=== PATIENT | male | born 1935 | race Caucasian/White ===

== ENCOUNTER 2017-11-15 09:37 | Outpatient (CLI) | payer MEDICARE, SELFPAY ==
[2017-11-15 11:15] LABS: Cholesterol 167 mg/dL (50-200); HDL Cholesterol 61 mg/dL (40-60); LDL CHOLESTEROL 89 mg/dL (<100); Triglyceride 145 mg/dL (30-150)
[2017-11-17 07:29] LABS: Testosterone, Total 178 ng/dL (240-950)
== END 2017-11-15 09:57 ==
PROVIDERS: PCP Internal Medicine; Visit Provider Urology
DX: E78.00 Pure hypercholesterolemia, unspecified (principal); E29.1 Testicular hypofunction; C61 Malignant neoplasm of prostate
CPT/HCPCS: 36415; 80061; 83721; 84403

== ENCOUNTER 2018-01-03 09:59 | Outpatient (CLI) | payer MEDICARE, SELFPAY ==
[2018-01-03 12:31] LABS: Abs Immature Grans 0.02 k/cumm (0.0-0.09); Absolute Basophil Count 0.01 k/cumm (0.0-0.2); Absolute Lymphocyte Count 1.41 k/cumm (1.2-3.4); Absolute Monocyte Count 0.85 k/cumm (0.11-0.7); Absolute Neutrophil Count 5.11 k/cumm (1.2-6.7); Basophils % 0.1; Eosinophils % 2.6; HCT 40.3 % (40.0-50.0); HGB 13.3 g/dL (13.5-17.5); Immature Grans % 0.3; Lymphocytes % 18.6; Mean Corpuscular Hemoglobin 33.8 pg (27.0-33.0); Mean Corpuscular Volume 102.3 fL (80-95); Mean Platelet Volume 9.6 fL (8.0-11.0); Monocytes % 11.2; Neutrophils % 67.2; Platelet Count 219 x1000/uL (130-400); RBC 3.94 m/cumm (4.50-6.00); RBC Distribution Width 12.9 % (11.8-14.1)
[2018-01-03 13:43] LABS: ALT 26 U/L (12-78); AST 23 U/L (15-37); Alkaline Phosphatase 93 U/L (46-116); Anion Gap 7.3 mmol/L (3-11); BUN 16 mg/dL (7-18); Bilirubin, Total 0.6 mg/dL (0.2-1.0); CO2 30.7 mmol/L (21.0-32.0); CREATININE 0.83 mg/dL (0.70-1.30); Calcium 8.7 mg/dL (8.5-10.1); Chloride 103 mmol/L (98-107); Glucose 95 mg/dL (70-100); Potassium 4.3 mmol/L (3.5-5.1); Sodium 141 mmol/L (136-145); TSH (W/Ref FT4) 1.58 uIU/mL (0.358-3.74); Total Protein 6.5 g/dL (6.4-8.2)
== END 2018-01-03 10:19 ==
PROVIDERS: PCP Internal Medicine; Visit Provider Internal Medicine
DX: F32.9 Major depressive disorder, single episode, unspecified (principal); D75.89 Other specified diseases of blood and blood-forming organs; E78.00 Pure hypercholesterolemia, unspecified
CPT/HCPCS: 36415; 80053; 84443; 85025

== ENCOUNTER 2018-03-16 11:38 | Outpatient (CLI) | payer MEDICARE, SELFPAY ==
--- NOTE | 2018-03-16 11:32 | DI.RAD_ITS ---
SYMPTOMS/DIAGNOSIS: RIGHT WRIST PAIN RIGHT WRIST: There are severe degenerative changes involving the 1st and 2nd multangular and multangular navicular joints. The joint space is essentially obliterated and there is sclerosis and periarticular hypertrophic spurring. The carpus is otherwise essentially unremarkable, the bony structures normally mineralized. There is prominence of the ulnar styloids, which would be consistent with an old wrist injury.
== END 2018-03-16 11:58 ==
PROVIDERS: PCP Internal Medicine; Referring Provider Internal Medicine; Visit Provider Student in an Organized Health Care Education/Training Program
DX: M25.531 Pain in right wrist (principal); M19.031 Primary osteoarthritis, right wrist
CPT/HCPCS: 99214; 73110

== ENCOUNTER → 2018-04-05 09:55 | Outpatient (BNVA) | payer MEDICARE, SELFPAY | PROVIDERS: PCP Internal Medicine; Visit Provider Nurse Practitioner Adult Health | DX: G56.01 Carpal tunnel syndrome, right upper limb (principal) | CPT/HCPCS: 95909; 99203; 99213 ==

== ENCOUNTER → 2018-04-13 12:41 | Outpatient (BNVA) | payer MEDICARE, SELFPAY | PROVIDERS: PCP Internal Medicine; Referring Provider Internal Medicine; Visit Provider Student in an Organized Health Care Education/Training Program | DX: M19.031 Primary osteoarthritis, right wrist (principal); G56.01 Carpal tunnel syndrome, right upper limb | CPT/HCPCS: 99213 ==

== ENCOUNTER 2018-05-05 01:18 | Outpatient (CLI) | payer MEDICARE, SELFPAY ==
--- NOTE | 2018-05-05 09:40 | DI.RAD_ITS ---
SYMPTOM/DIAGNOSIS: RT WRIST INJECTION, ARTHRITIS RIGHT WRIST. 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 Pemberton during the performance of a right wrist injection. Please refer to the procedure report for complete details.
--- NOTE | 2018-05-05 10:06 | W.PROCNOTE ---
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 Noninvasive measures have been tried. To serve as both diagnostic and therapeutic, an injection under fluoroscopy was recommended. I had discussed the risks of the procedure and the patient elected to proceed. Procedure Description: Farhad was greeted in the flouroscopy room. The correct side was identified and the consent was reviewed with the patient and signed. The patient was then seated at the fluoroscopy table with the right hand palm down on the table. The RIGHT wrist was then prepped with Chloraprep. The dorsal starting point was identiifed by bony landmarks and fluoroscopy. The skin and soft tissue in the tract of the injection was anesthetized with 1% Lidocaine. A needle was then inserted deep into STT joint. A small amount of Omnipaque solution was injected to confirm intraarticular placement. It was difficult to see the contrast material in the STT joint but it was seen on either side and within the intercarpal space. Once confirmed, the wrist was injected with 1cc of 0.5% Bupivicaine and 40mg of Depo-Medrol. A bandaid was placed on the injection site. The patient tolerated the procedure well.
[2018-05-05] MEDS: Omnipaque 300 MG/ML 10 ML BTL IJ (10:42)
[2018-05-05] MEDS: Bupivacaine 0.5% Pres-Free 10 ML VIAL IJ (10:43)
[2018-05-05] MEDS: methylPREDNISolone ACETATE 40 MG/ML VIAL IM (10:44)
== END 2018-05-05 01:38 ==
PROVIDERS: PCP Internal Medicine; Visit Provider Student in an Organized Health Care Education/Training Program
DX: M25.531 Pain in right wrist (principal); M19.031 Primary osteoarthritis, right wrist
CPT/HCPCS: 20605; 77002; J1030

== ENCOUNTER 2018-06-07 09:42 | Outpatient (CLI) | payer MEDICARE, SELFPAY ==
[2018-06-07 11:24] LABS: FREE T4 1.25 ng/dL (0.76-1.46); TSH 2.51 uIU/mL (0.358-3.74)
[2018-06-09 08:48] LABS: Vitamin D 25 Total 87.8 ng/ml (30-100)
[2018-06-10 11:42] LABS: Testosterone, Total 286 ng/dL (240-950)
== END 2018-06-07 10:02 ==
PROVIDERS: PCP Internal Medicine; Visit Provider Nurse Practitioner Family
DX: F43.21 Adjustment disorder with depressed mood (principal); E55.9 Vitamin D deficiency, unspecified; R63.4 Abnormal weight loss; Z79.899 Other long term (current) drug therapy
CPT/HCPCS: 36415; 82306; 84403; 84439; 84443

== ENCOUNTER 2018-07-29 01:57 | Outpatient (CLI) | payer MEDICARE, SELFPAY ==
--- NOTE | 2018-07-29 09:42 | DI.MRI_ITS ---
SYMPTOM/DIAGNOSIS: CONFUSION, MEMORY DISTURBANCE, INCREASING DEPRESSION BALANCE DISTURBANCE MRI BRAIN: Routine noncontrast examination was performed. There is prominence of the ventricles and sulci consistent with the patient's age and cerebral atrophy. Flair and T2 weighted images show hyperintense signal in the white matter most consistent with small vessel ischemic disease. The diffusion weighted images show no evidence of an acute infarct. Gradient imaging shows no evidence of acute intracranial hemorrhage. The ventricles are intact. Basilar cisterns are patent. There is no acute midline shift or mass effect. A normal flow void is seen in the [place] of [place]. There is complete opacification of the left maxillary sinus and mild mucosal thickening in the ethmoid air cells and right maxillary sinus. IMPRESSION: 1. Cerebral atrophy and small ischemic disease 2. No evidence of an acute infarct or hemorrhage. 3. Sinusitis predominantly involving the left maxillary sinus.
== END 2018-07-29 02:17 ==
PROVIDERS: PCP Internal Medicine; Visit Provider Nurse Practitioner Family
DX: R41.3 Other amnesia (principal); R26.89 Other abnormalities of gait and mobility; G31.1 Senile degeneration of brain, not elsewhere classified; I67.89 Other cerebrovascular disease; J32.9 Chronic sinusitis, unspecified
CPT/HCPCS: 70551

== ENCOUNTER 2018-08-12 16:37 | Emergency (ER) | payer MEDICARE, SELFPAY ==
[2018-08-12] VITALS (18 sets, daily range): BP systolic 100–136; BP diastolic 60–77; PULSE 59–67; RESP 11–28; TEMP 36.7; O2SAT 95–98
--- NOTE | 2018-08-12 17:03 | DI.CT_ITS ---
SYMPTOM/DIAGNOSIS: STROKE-LIKE SYMPTOMS 6 [address]RS AGO NONCONTRAST HEAD CT: Comparison is made with 16 Jan 2017 Atrophy and mild white matter changes of small vessel disease is noted. No acute infarct, hemorrhage or mass is seen. There is opacification of the left maxillary sinus, not seen on the previous exam. There is also opacification of the frontal and a few left ethmoid sinuses. IMPRESSION: Atrophy and mild small vessel disease of white matter. Chronic sinus disease.
[2018-08-12 17:20] LABS: Abs Immature Grans 0.02 k/cumm (0.0-0.09); Absolute Basophil Count 0.01 k/cumm (0.0-0.2); Absolute Eosinophil Count 0.16 k/cumm (0.0-0.7); Absolute Monocyte Count 0.75 k/cumm (0.11-0.7); Absolute Neutrophil Count 3.96 k/cumm (1.2-6.7); Basophils % 0.2; Eosinophils % 2.4; HCT 41.2 % (40.0-50.0); HGB 14.1 g/dL (13.5-17.5); Immature Grans % 0.3; Lymphocytes % 25.8; Mean Corp. HGB Concentration 34.2 g/dL (32.0-36.0); Mean Corpuscular Hemoglobin 33.5 pg (27.0-33.0); Mean Corpuscular Volume 97.9 fL (80-95); Mean Platelet Volume 8.9 fL (8.0-11.0); Monocytes % 11.4; Neutrophils % 59.9; Platelet Count 239 x1000/uL (130-400); RBC 4.21 m/cumm (4.50-6.00)
--- NOTE | 2018-08-12 17:41 | ED.GENADUL_ITS ---
Discharge Plan Disposition Patient Disposition: HOME Condition: Good Discharge Details Chief Complaint: CVA/TIA Clinical Impression: Brain TIA Primary Care Provider: Toyin Stevenson ED Provider: Enzo Dos Santos Home Meds and New Rx's Prescriptions: New aspirin 81 mg tablet,delayed release (DR/EC) 81 mg PO DAILY Qty: 60 RF: 0 Continued amoxicillin-pot clavulanate [Augmentin] 500-125 mg tablet 1 tab PO BID Qty: 20 RF: 2 lorazepam [Ativan] 1 mg tablet 1 mg PO BID Qty: 60 RF: 0 latanoprost 2.5 ML drops 1 drp OU QPM RF: 0 dorzolamide 10 ML drops 1 drp OS BID RF: 0 triamcinolone acetonide 15 GM cream 15 gm Topical BID Qty: 1 RF: 0 clonazepam [Klonopin] 1 MG tablet 0.5 mg PO HS PRNQty: 30 RF: 5 vitamin B complex [B Complex 1] tablet 1 tab PO DAILY RF: 0 cholecalciferol (vitamin D3) 5,000 unit capsule 5,000 unit PO DAILY RF: 0 Viibryd 20 mg tablet 30 mg PO DAILY RF: 0 Discharge Instructions Instructions: Transient Ischemic Attack (ED) Additional Instructions: At this time clinically I suspect you had a acute mini stroke. Please take your daily aspirin 81 mg as directed. Please follow-up on Wednesday or Wednesday with your primary care provider. If you notice any worsening of your symptoms, or any new symptoms such as vomiting, diarrhea, fever, chills, shortness of breath, chest pain, numbness, weakness, or fainting , please return immediately to the emergency department for reevaluation. Please follow up with your primary care provider as soon as possible for reassessment and reevaluation. As always, it was a pleasure participating in your medical care today. Referrals: Toyin Stevenson MD [Primary Care Provider] - Medical Decision Making This is an 83-year-old male with a past medical history of sinusitis, anxiety, previous prostate cancer with prostatectomy who presents today for evaluation of difficulty forming words roughly 5 to 6 hours ago lasting only 15 minutes. The episode resolved on its own. He has had no concerning red flags of chest pain shortness of breath syncope lightheadedness headache numbness tingling or weakness since then. Physical exam demonstrates no neurologic deficits, no focal abnormality. He has normal ambulation, normal speech, with no concerning physical exam findings. I suspect that the patient most likely had a small TIA based on his age and limited risk factors. We will get a CT scan of his head, evaluate for any acute cardiac component, and reassess. The patient's ABCD 2 risk score is 3 points which places him in the low risk categ ory. 6:27 PM Patient's laboratory work-up has returned, no significant abnormalities. Electrolytes are normal, hemoglobin level stable. Renal function normal. Troponin less than 0.05. EKG benign. CT scan per virtual radiology demonstrates no acute intracranial hemorrhage. There is an opacity in left maxillary sinus and frontal sinus but no other significant abnormality. He shows no evidence of headache, neck pain, or significant frontal facial pain. I see no evidence of acute severe sinusitis. He has completed his course of Augmentin just yesterday. Neurology reassessment demonstrates continued normal neurologic exam with no acute abnormality or deficit. With a benign work-up, negative head CT scan, signs and symptoms occurring over 5 hours ago and lasting less than 15 minutes, and with a complete return to normal mental status afterwards I see no acute indication for significant stroke. Signs and symptoms appear consistent with a TIA. I had a long discussion with the patient and family regarding admission versus discharge and close follow-up. Currently it is Wednesday and will be unable to offer MRI or echo currently. I discussed the risks and benefits of these options, and through shared decision making process family is requesting to go home, however her plan will entail prompt follow-up on Wednesday or Wednesday with the patient's PCP, daily aspirin 81 mg daily, and prompt return for any return of symptoms. I have extensively reviewed the treatment plan and discharge instructions with the patient and their family. I have addressed all patient concerns at this time. The patient and family was made aware of what symptoms to monitor for that would warrant a return to the emergency department. Discussed the plan with the patient and family, they demonstrate verbal understanding and agreement with our assessment and plan at this time. EKG 17: 08 Rate 62, sinus rhythm, intervals normal except for a slightly shortened IN. No evidence of delta wave. No significant ST elevations or depressions, no Q waves. COMPARISON: CT HEAD WITHOUT CONTRAST 01/16/2017 10:08 AM FINDINGS: Brain: No acute intracranial hemorrhage. There is mild diffuse heterogeneity of the white matter attenuation, consistent with chronic white matter ischemic changes. Mild cerebral atrophy Ventricles: Normal. No ventriculomegaly. Bones/joints: Unremarkable. No acute fracture. Sinuses: Opacity in the left maxillary sinus and frontal sinuses and ethmoid sinuses may represent acute or chronic sinusitis. Mastoid air cells: Visualized mastoid air cells are well aerated. No mastoid effusion. Soft tissues: Unremarkable. IMPRESSION: 1. No acute intracranial hemorrhage. 2. Opacity in the left maxillary sinus and frontal sinuses and ethmoid sinuses may represent acute or chronic sinusitis. ASSESSMENT: ASPECTS ([place] Stroke Program Early CT Score) is 10 Thank you for allowing us to participate in the care of your patient. Dictated and Authenticated by: Malinda Santana MD 08/12/2018 5:40 PM Eastern Time ([place] & [place]) HPI General Date/Time Provider Initiated Documentation: 08/12/18 16:43 . HPI Narrative: This is an 83-year-old male with a past medical history of sinusitis, anxiety, lumbar discectomy, radical prostatectomy, carpal tunnel, previous prostate cancer, who presents today for evaluation of difficulty forming his words. Patient states that at 11 AM which was 6 hours ago he had 15 minutes where he had mild confusion and difficulty forming his words. He had no vision changes, weakness, numbness or tingling, fall, loss of balance, headache, chest pain, or shortness of breath during this time. Symptoms resolved on their own without any intervention. Since then he has had no other symptoms like this. He denies any history of stroke or CO in the past. He denies any vomiting diarrhea fever chills, headache, neck pain, shortness of breath, or other complaints. In the past he used to take a daily aspirin but he has not taken any for the last few years. He denies any other modifying factors. He denies any medication changes. Of note he was recently diagnosed with sinusitis and took a full and complete course of 10 days of Augmentin. He finished this yesterday. Related Data Home Medications Medication Instructions Recorded Confirmed dorzolamide 1 drp OS BID drp NS 05/09/12 08/12/18 latanoprost 1 drp OU QPM drp NS 05/09/12 08/12/18 triamcinolone acetonide 15 gm TOPICAL BID #1 script 04/14/17 08/12/18 clonazepam [Klonopin] 0.5 mg PO HS PRN #30 tab-cap 10/18/17 08/12/18 cholecalciferol (vitamin D3) 5,000 5,000 unit PO DAILY 07/28/18 08/12/18 unit capsule vitamin B complex tablet 1 tab PO DAILY 07/28/18 08/12/18 amoxicillin 500 mg-potassium 1 tab PO BID #20 tab 08/01/18 08/12/18 clavulanate 125 mg tablet lorazepam 1 mg tablet 1 mg PO BID #60 tab 08/01/18 08/12/18 vilazodone 20 mg tablet 30 mg PO DAILY tab 08/01/18 08/12/18 aspirin 81 mg PO DAILY #60 tab 08/12/18 Previous Rx's Medication Instructions Recorded triamcinolone acetonide 15 gm TOPICAL BID #1 script 04/14/17 amoxicillin 500 mg-potassium 1 tab PO BID #20 tab 08/01/18 clavulanate 125 mg tablet lorazepam 1 mg tablet 1 mg PO BID #60 tab 08/01/18 aspirin 81 mg PO DAILY #60 tab 08/12/18 Allergies Allergy/AdvReac Type Severity Reaction Status Date / Time brimonidine tartrate Allergy Intermediate eye Verified 08/12/18 16:47 [From Combigan] irritation,rash buspirone Allergy Intermediate Verified 08/12/18 16:47 shellfish derived Allergy Intermediate Swelling/Ed Verified 08/12/18 16:47 earnest timolol maleate Allergy Intermediate eye Verified 08/12/18 16:47 [From Combigan] irritation,rash hydrocodone Allergy Verified 08/12/18 16:47 codeine AdvReac Intermediate Nausea Verified 08/12/18 16:47 ibuprofen [From Advil] AdvReac Intermediate Nausea Verified 08/12/18 16:47 naproxen sodium [From Aleve] AdvReac Intermediate Nausea Verified 08/12/18 16:47 indomethacin [From Indocin] AdvReac Mild Diarrhea Verified 08/12/18 16:47 General Stated Complaint: CVA/TIA DARRICK: 2 Review of Systems Review of Systems All systems reviewed & are unremarkable except as noted in HPI and below PFSH Medical History Arthritis of right wrist (Acute) Primary malignant neoplasm of prostate (Acute) Hypercholesterolemia (Acute) Glaucoma (Acute) Depression (Acute 08/28/15) Surgical History H/O prostatectomy (Chronic) CERVICAL SPINE FUSING Colonoscopy - IV Sedation (05/16/12) Extraction of cataract (06/12/14) Social History Smoking/Tobacco Use Status: Never Alcohol Intake: never Drug use: Never Substance use type: does not use Housing: house Do you feel safe at home: Yes Do you feel safe in your relationship?: Yes Exam Narrative Exam Narrative: 1.Const: Well-nourished, Well-developed, appearing stated age 2.Eyes: PERRL, no conjunctival injection, and symmetrical lids. 3.ENT: Atraumatic external nose and ears. Moist MM. Neck: Symmetric, trachea midline, No thyromegaly. 4.CVS: +S1/S2, No murmurs or gallops. Peripheral pulses 2+ and equal in all extremities. Brisk capillary refill in all extremities. No carotid or vertebral bruits. 5.RESP: Unlabored respiratory effort. Clear to auscultation bilaterally. No wheezes rales or rhonchi 6.GI: Soft, Nontender/Nondistended, No hepatosplenomegaly. No guarding or rebound. 7.MSK: Normocephalic/Atraumatic, Extremities w/o deformity or ttp No cyanosis or clubbing, Normal movement of all extremities 8.Skin: Warm, Dry. No rashes or lesions. 9.Neuro: sight mounter II-XII grossly intact. Sensation grossly intact, no focal neurologic deficits. All 6 cardinal planes of vision are fully intact. No evidence of rotatory or vertical nystagmus. The patient demonstrated a normal [id number], good dexterity. There was no evidence of dysdiadochokinesia. Patient was able to ambulate without difficulty. There was no wide-based gait. Romberg, and [id number] are both normal on testing. Sensation was intact bilaterally as well as muscle strength bilaterally for all extremities. Patient was able to verbalize butter cup with no slurring, or miss pronunciation. 10.Psych: (AAO) x3. Appropriate mood and affect Course Vital Signs Temperature 36.7 C 08/12/18 16:43 Pulse 67 08/12/18 16:43 Respiratory Rate 18 08/12/18 16:43 Blood Pressure 136/77 08/12/18 16:43 Pulse Oximetry 96 08/12/18 16:43 Temperature 36.7 C 08/12/18 16:43 Temperature Source Temporal Artery Scan 08/12/18 16:43 Pulse 67 08/12/18 16:43 Respiratory Rate 18 08/12/18 16:43 Respiratory Effort Non-Labored 08/12/18 16:47 Blood Pressure 136/77 08/12/18 16:43 Blood Pressure Position Supine 08/12/18 16:43 Pulse Oximetry 96 08/12/18 16:43 Oxygen Delivery Method Room Air 08/12/18 16:43 Oxygen Flow Rate 0 08/12/18 16:43 Pain Level 0 08/12/18 16:43
--- NOTE | 2018-08-12 17:41 | DI.VRAD_ITS ---
EXAM: CT Head Without Contrast EXAM DATE/TIME: 08/12/2018 5:04 PM CLINICAL HISTORY: 83 years old, male; Other: Partial aphasia; Patient HX: Stroke-like symptoms 6 hours ago TECHNIQUE: Imaging protocol: Axial computed tomography images of the head without contrast. Coronal and sagittal reformatted images were created and reviewed. Other technique: STROKE PROTOCOL was implemented. COMPARISON: CT HEAD WITHOUT CONTRAST 01/16/2017 10:08 AM FINDINGS: Brain: No acute intracranial hemorrhage. There is mild diffuse heterogeneity of the white matter attenuation, consistent with chronic white matter ischemic changes. Mild cerebral atrophy Ventricles: Normal. No ventriculomegaly. Bones/joints: Unremarkable. No acute fracture. Sinuses: Opacity in the left maxillary sinus and frontal sinuses and ethmoid sinuses may represent acute or chronic sinusitis. Mastoid air cells: Visualized mastoid air cells are well aerated. No mastoid effusion. Soft tissues: Unremarkable. IMPRESSION: 1. No acute intracranial hemorrhage. 2. Opacity in the left maxillary sinus and frontal sinuses and ethmoid sinuses may represent acute or chronic sinusitis. ASSESSMENT: ASPECTS ([place] Stroke Program Early CT Score) is 10 Dictated and Authenticated by: Malinda Santana MD. Ordering:ANNIE Giraldo MD
[2018-08-12 17:44] LABS: ALT 28 U/L (12-78); AST 24 U/L (15-37); Albumin 3.1 g/dL (3.4-5.0); Alkaline Phosphatase 87 U/L (46-116); Anion Gap 10.7 mmol/L (3-11); BUN 19 mg/dL (7-18); Bilirubin, Total 0.3 mg/dL (0.2-1.0); CO2 26.3 mmol/L (21.0-32.0); CREATININE 0.87 mg/dL (0.70-1.30); Calcium 9.1 mg/dL (8.5-10.1); Chloride 106 mmol/L (98-107); Glucose 100 mg/dL (70-100); Magnesium 2.1 mg/dL (1.8-2.4); Potassium 4.1 mmol/L (3.5-5.1); Sodium 143 mmol/L (136-145)
[2018-08-12 17:45] LABS: Troponin I < 0.05 ng/mL (0.00-0.06)
[2018-08-12] MEDS: Aspirin 81 MG CHEW PO (18:29)
--- NOTE | 2018-08-15 08:00 | NUR.NOTE ---
referral sent to patient pcp.Nursing Note:
== END 2018-08-12 18:36 | disposition home or self-care (01) ==
PROVIDERS: Emergency Provider Student in an Organized Health Care Education/Training Program; PCP Internal Medicine
DX: G45.9 Transient cerebral ischemic attack, unspecified (principal)
CPT/HCPCS: 36415; 80053; 93005; 99285; 70450; 83735; 84484; 85025; 93010

== ENCOUNTER 2018-08-22 00:24 | Outpatient (CLI) | payer MEDICARE, SELFPAY ==
--- NOTE | 2018-08-22 09:36 | DI.US_ITS ---
SYMPTOM/DIAGNOSIS: TIA, G45.9, APHASIA, DIZZINESS CAROTID ULTRASOUND: There is a mild amount of plaque in the common carotid bulbs. No significant stenosis is visible. The velocity measurements are within the normal range. The vertebral arteries show antegrade flow. IMPRESSION: No significant internal carotid artery stenosis.
== END 2018-08-22 00:44 ==
PROVIDERS: PCP Internal Medicine; Visit Provider Internal Medicine
DX: G45.9 Transient cerebral ischemic attack, unspecified (principal); R47.01 Aphasia; R42 Dizziness and giddiness
CPT/HCPCS: 93880

== ENCOUNTER 2018-08-31 00:37 | Outpatient (CLI) | payer MEDICARE, SELFPAY ==
--- NOTE | 2018-08-31 07:31 | MERGE_ITS ---
*[facility]* *[facility]* [address] [place] [address] Date of study: 08/31/2018 Transthoracic Echocardiography M-mode, complete 2D, complete spectral Doppler, and color Doppler *STUDY CONCLUSIONS* Summary: 1. Left ventricle: The cavity size was normal. Wall thickness was normal. Systolic function was normal. The estimated ejection fraction was 60-65%. Wall motion was normal; there were no regional wall motion abnormalities. Findings consistent with diastolic dysfunction. 2. Aortic valve: Sclerosis without stenosis. There was mild regurgitation. 3. Mitral valve: Mildly thickened leaflets. There was mild regurgitation. 4. Left atrium: The atrium was moderately dilated. 5. Right ventricle: The cavity size was moderately dilated. Wall thickness was normal. Systolic function was normal. Minor axis dimension, ED (basilar, A4C): 4.8cm. 6. Right atrium: The atrium was moderately to severely dilated. 7. Tricuspid valve: Mildly thickened leaflets. There was moderate-severe regurgitation. 8. Pulmonary arteries: Pulmonary systolic pressure was increased, in the range of 35mm Hg to 40mm Hg. *PATIENT PRESENTATION* Height: 177.8cm (70in ) S/D Pressure: 113 / 69 Weight: 64.4kg (141.7lb ) BSA: 1.78m^2 Test start time: 07:42 AM. Test stop time: 08:45 AM. PERFORMING Unknown PERFORMING [facility] ORDERING Toyin Stevenson REFERRING Toyin Stevenson [employer] Joyce Carrero, RT (R)(CT), [facility] *PROCEDURE DATA* Procedure information: The patient was identified by two identifiers. This study was interpreted by [facility]. Pertinent images and digital data are archived for permanent storage and are available for subsequent review. No prior study was available for comparison. Study status: Routine. Transthoracic echocardiography. M-mode, complete 2D, complete spectral Doppler, and color Doppler. A Transthoracic Echocardiogram was performed. Scanning was performed from the parasternal, apical, subcostal, and suprasternal notch acoustic windows. Images were obtained using an [id number] cardiac ultrasound machine. Image quality was adequate. Study completion: The patient tolerated the procedure well. There were no complications. History: PMH: TIA, Foot edema, NINO R06.09. *CARDIAC ANATOMY* Left ventricle: The cavity size was normal. Wall thickness was normal. Systolic function was normal. The estimated ejection fraction was 60-65%. Wall motion was normal; there were no regional wall motion abnormalities. Findings consistent with diastolic dysfunction. Aortic valve: Trileaflet. Sclerosis without stenosis. Mobility was not restricted. Doppler: Transvalvular velocity was within the normal range. There was no stenosis. There was mild regurgitation. VTI ratio of LVOT to aortic valve: 0.6. Valve area (VTI): 1.9cm^2. Indexed valve area (VTI): 1.1cm^2/m^2. Peak velocity ratio of LVOT to aortic valve: 0.61. Valve area (Vmax): 2cm^2. Indexed valve area (Vmax): 1.1cm^2/m^2. Mean velocity ratio of LVOT to aortic valve: 0.57. Valve area (Vmean): 1.8cm^2. Indexed valve area (Vmean): 1cm^2/m^2. Mean gradient (S): 5.3mm Hg. Peak gradient (S): 8.1mm Hg. Aorta: Aortic root: The aortic root was normal in size. Ascending aorta: The ascending aorta was normal in size. Mitral valve: Mildly thickened leaflets. Mobility was not restricted. Doppler: Transvalvular velocity was within the normal range. There was no evidence for stenosis. There was mild regurgitation. Valve area by pressure half-time: 3.3cm^2. Indexed valve area by pressure half-time: 1.9cm^2/m^2. Left atrium: The atrium was moderately dilated. Right ventricle: The cavity size was moderately dilated. Wall thickness was normal. Systolic function was normal. Pulmonic valve: Structurally normal valve. Doppler: Transvalvular velocity was within the normal range. There was no evidence for stenosis. There was trivial regurgitation. Peak gradient (S): 2.2mm Hg. Tricuspid valve: Mildly thickened leaflets. Doppler: Transvalvular velocity was within the normal range. There was no evidence for stenosis. There was moderate-severe regurgitation. Pulmonary artery: Pulmonary systolic pressure was increased, in the range of 35mm Hg to 40mm Hg. Right atrium: The atrium was moderately to severely dilated. Pericardium: There was no pericardial effusion. Systemic veins: Inferior vena cava: Well visualized. The vessel was patent and normal in size. The respirophasic diameter changes were in the normal range (greater than or equal to 50%). Baseline ECG: Normal sinus rhythm. Measurements Left ventricle Value Reference LV ID, ED, PLAX 4.3 cm 3.5 - 6.0 LV ID, ES, PLAX 2.7 cm 2.1 - 4.0 LV PW thickness, ED, PLAX 0.9 cm LV end-diastolic volume, 1-p A2C 69 ml LV ejection fraction, 1-p A2C 60 % LV end-diastolic volume, 1-p A4C 48 ml LV ejection fraction, 1-p A4C 59 % LV e', lateral 0.08 m/sec LV E/e', lateral 8 LV e', medial 0.076 m/sec LV E/e', medial 8 LV e', average 0.078 m/sec LV E/e', average 8 Ventricular septum Value Reference IVS thickness, ED, PLAX 1.1 cm LVOT Value Reference LVOT ID, A-P 2.0 cm LVOT area 3.2 cm^2 LVOT peak velocity, S 0.86 m/sec LVOT mean velocity, S 0.64 m/sec LVOT VTI, S 20.8 cm LVOT peak gradient, S 3 mm Hg LVOT mean gradient, S 1.8 mm Hg Stroke volume (SV), LVOT DP 67 ml Stroke index (SV/bsa), LVOT DP 38 ml/m^2 Aortic valve Value Reference Aortic valve peak velocity, S 1.4 m/sec Aortic valve mean velocity, S 1.1 m/sec Aortic valve VTI, S 35.0 cm Aortic mean gradient, S 5.3 mm Hg Aortic peak gradient, S 8.1 mm Hg VTI ratio, LVOT/AV 0.6 Aortic valve area, VTI 1.9 cm^2 Velocity ratio, peak, LVOT/AV 0.61 Aortic valve area, peak velocity 2 cm^2 Velocity ratio, mean, LVOT/AV 0.57 Aortic valve area, mean velocity 1.8 cm^2 Aortic valve area/bsa, mean velocity 1 cm^2/m^2 Aortic regurg deceleration 227 cm/s^2 Aortic regurg pressure half-time 499 ms Aorta Value Reference Aortic root ID, ED 3.4 cm Ascending aorta ID, A-P, S 3.5 cm RVOT Value Reference RVOT VTI, S 14.0 cm Left atrium Value Reference LA ID, A-P, ES 3.5 cm LA ID/bsa, A-P 2.0 cm/m^2 <=2.2 LA volume/bsa, ES, 1-p A4C 46 ml/m^2 LA volume, ES, 2-p 74 ml LA volume/bsa, ES, 2-p 42 ml/m^2 LA/aortic root ratio 1.04 Mitral valve Value Reference Mitral E-wave peak velocity 0.64 m/sec Mitral A-wave peak velocity 0.54 m/sec Mitral deceleration time 229 ms 150 - 230 Mitral pressure half-time 66 ms Mitral E/A ratio, peak 1.19 Mitral valve area, PHT, DP 3.3 cm^2 Pulmonary veins Value Reference Pulmonary vein peak velocity, S 0.72 m/sec Pulmonary vein peak velocity, D 0.47 m/sec Pulmonary vein velocity ratio, peak, 1.51 S/D Pulmonary vein A-wave reversal peak 0.27 m/sec velocity Tricuspid valve Value Reference Tricuspid regurg peak velocity 3.1 m/sec Tricuspid peak RV-RA gradient 38.5 mm Hg Right atrium Value Reference RA area, ES, A4C (H) 28.8 cm^2 8.3 - 19.5 Right ventricle Value Reference RV ID, minor axis, ED, A4C base 4.8 cm Pulmonic valve Value Reference Pulmonic peak gradient, S 2.2 mm Hg Legend: (L) and (H) alpesh values outside specified reference range. I have personally reviewed the images and have reviewed and edited the reported findings. Electronically signed by Michel Gtz 08/31/2018 09:59
== END 2018-08-31 00:57 ==
PROVIDERS: PCP Internal Medicine; Visit Provider Internal Medicine
DX: R06.09 Other forms of dyspnea (principal); I50.1 Left ventricular failure, unspecified; I08.3 Combined rheumatic disorders of mitral, aortic and tricuspid valves; G45.9 Transient cerebral ischemic attack, unspecified; R60.0 Localized edema
CPT/HCPCS: 93306

== ENCOUNTER → 2018-09-21 12:40 | Outpatient (BNVA) | payer MEDICARE, SELFPAY | PROVIDERS: PCP Internal Medicine; Referring Provider Nurse Practitioner Family; Visit Provider Psychiatry & Neurology Neurology | DX: G45.9 Transient cerebral ischemic attack, unspecified (principal); G62.9 Polyneuropathy, unspecified; R25.1 Tremor, unspecified; R26.9 Unspecified abnormalities of gait and mobility; F41.8 Other specified anxiety disorders | CPT/HCPCS: 99205; 99215 ==

== ENCOUNTER 2018-09-21 14:07 | Outpatient (CLI) | payer MEDICARE, SELFPAY ==
[2018-09-21 14:46] LABS: Hemoglobin A1C 6.2 % (4.5-6.2)
[2018-09-21 15:35] LABS: Vitamin B12 637 pg/mL (193-986)
[2018-09-21 15:42] LABS: Folate > 20.0 ng/mL (8.6-20.0)
[2018-09-22 14:03] LABS: Albumin 55.3 % (55.8-66.1); Comment SEE COMMENTS; Total Protein 6.8 g/dl (6.3-8.2)
== END 2018-09-21 14:27 ==
PROVIDERS: PCP Internal Medicine; Visit Provider Psychiatry & Neurology Neurology
DX: G62.9 Polyneuropathy, unspecified (principal); R79.89 Other specified abnormal findings of blood chemistry
CPT/HCPCS: 36415; 99215; 82607; 82746; 83036; 84165; 86320

== ENCOUNTER 2018-09-29 02:21 | Outpatient (CLI) | payer MEDICARE, SELFPAY ==
--- NOTE | 2018-11-01 12:49 | CER_ITS ---
DATE OF DICTATION: November 01, 2018 PREVENTICE MONITOR REPORT STUDY INDICATION: TIA REQUESTING PROVIDER: Yvonne Webb M.D. FINDINGS: The patient was monitored for 19 days and 6 hours. Average heart rate 61 bpm, range 54 to 114 bpm. Rare ectopy. No atrial fibrillation. One 4-beat ventricular run, 122 bpm. No pauses greater than 3 seconds. No high degree heart block. Three patient events. All of these events correlated with sinus rhythm with heart rates between 49 and 81 bpm. FINAL INTERPRETATION: One 4-beat ventricular run of unlcear significance.
== END 2018-09-29 02:41 ==
PROVIDERS: PCP Internal Medicine; Visit Provider Psychiatry & Neurology Neurology
DX: G45.9 Transient cerebral ischemic attack, unspecified (principal); I49.3 Ventricular premature depolarization
CPT/HCPCS: 93270

== ENCOUNTER 2018-10-27 15:42 | Outpatient (REF) | payer MEDICARE, SELFPAY | END 2018-10-27 16:02 | LOC: LBN 15:42 | PROVIDERS: PCP Internal Medicine; Visit Provider Otolaryngology | DX: J32.0 Chronic maxillary sinusitis (principal) | CPT/HCPCS: 87077; 87070; 87186 ==

== ENCOUNTER 2018-11-01 11:23 | Outpatient (CLI) | payer MEDICARE, SELFPAY | END 2018-11-01 11:43 | PROVIDERS: PCP Internal Medicine; Referring Provider Internal Medicine; Visit Provider Student in an Organized Health Care Education/Training Program | DX: I49.3 Ventricular premature depolarization (principal) | CPT/HCPCS: 93228 ==

== ENCOUNTER → 2018-11-14 10:38 | Outpatient (BNVA) | payer MEDICARE, SELFPAY | PROVIDERS: PCP Internal Medicine; Visit Provider Psychiatry & Neurology Neurology | DX: R25.1 Tremor, unspecified (principal); G45.9 Transient cerebral ischemic attack, unspecified; R26.9 Unspecified abnormalities of gait and mobility | CPT/HCPCS: 99213 ==

== ENCOUNTER 2019-01-17 00:53 | Outpatient (CLI) | payer MEDICARE, SELFPAY ==
--- NOTE | 2019-01-17 13:45 | DI.CT_ITS ---
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 There is an extensive opacification of multiple ethmoid sinuses. The sphenoid sinuses appear clear. The mastoid air cells are clear. T here is extension and involvement of the nasal cavity with thinning of the turbinates. There is also thinning of the lama of the maxillary sinuses as well as wall ethmoid and frontal sinuse s. The orbits are unremarkable. IMPRESSION: Marked interval increase in opacification of the sinuses, which could represent severe chronic sinusi tis versus extensive polyposis. Fungal infection is an additional consideration.
== END 2019-01-17 01:13 ==
PROVIDERS: PCP Internal Medicine; Visit Provider Otolaryngology
DX: J32.0 Chronic maxillary sinusitis (principal); J32.2 Chronic ethmoidal sinusitis
CPT/HCPCS: 70486

== ENCOUNTER 2019-03-17 11:17 | Outpatient (CLI) | payer MEDICARE, SELFPAY ==
[2019-03-17 12:43] LABS: ESR 35 mm/hr (1-20)
[2019-03-17 12:44] LABS: C-Reactive Protein 0.24 mg/dL (0.0-0.3)
[2019-03-20 12:13] LABS: c-ANCA Negative (Negative); p-ANCA Negative (Negative)
== END 2019-03-17 11:37 ==
PROVIDERS: PCP Internal Medicine; Visit Provider Otolaryngology
DX: J32.2 Chronic ethmoidal sinusitis (principal)
CPT/HCPCS: 36415; 85652; 86140; 86255

== ENCOUNTER 2019-03-17 11:52 | Outpatient (REF) | payer MEDICARE, SELFPAY | END 2019-03-17 12:12 | LOC: LBN 11:52 | PROVIDERS: PCP Internal Medicine; Visit Provider Otolaryngology | DX: J32.2 Chronic ethmoidal sinusitis (principal) | CPT/HCPCS: 87077; 87070; 87186 ==

== ENCOUNTER 2019-06-28 02:21 | Outpatient (CLI) | payer MEDICARE, SELFPAY ==
[2019-06-28 10:19] LABS: Abs Immature Grans 0.02 k/cumm (0.0-0.09); Absolute Basophil Count 0.01 k/cumm (0.0-0.2); Absolute Eosinophil Count 0.19 k/cumm (0.0-0.7); Absolute Monocyte Count 0.79 k/cumm (0.11-0.7); Absolute Neutrophil Count 4.58 k/cumm (1.2-6.7); Basophils % 0.1; Eosinophils % 2.7; HCT 41.5 % (40.0-50.0); Immature Grans % 0.3 %; Lymphocytes % 21.2; Mean Corp. HGB Concentration 33.7 g/dL (32.0-36.0); Mean Corpuscular Hemoglobin 33.2 pg (27.0-33.0); Mean Corpuscular Volume 98.3 fL (80-95); Mean Platelet Volume 9.1 fL (8.0-11.0); Monocytes % 11.1; Neutrophils % 64.6; Platelet Count 311 x1000/uL (130-400); RBC 4.22 m/cumm (4.50-6.00); RBC Distribution Width 13.1 % (11.8-14.1); White Blood Cell Count 7.09 k/cumm (4.4-10.8)
[2019-06-28 11:14] LABS: ALT 24 U/L (16-63); AST 22 U/L (15-37); Albumin 3.2 g/dL (3.4-5.0); Alkaline Phosphatase 103 U/L (46-116); Anion Gap 8.8 mmol/L (3-11); BUN 21 mg/dL (7-18); Bilirubin, Total 0.8 mg/dL (0.2-1.0); CO2 27.2 mmol/L (21.0-32.0); CREATININE 0.97 mg/dL (0.70-1.30); Calcium 8.9 mg/dL (8.5-10.1); Chloride 102 mmol/L (98-107); Glucose 94 mg/dL (74-106); Potassium 4.6 mmol/L (3.5-5.1); Sodium 138 mmol/L (136-145); TSH (W/Ref FT4) 1.67 uIU/mL (0.36-3.74)
== END 2019-06-28 02:41 ==
PROVIDERS: PCP Nurse Practitioner; Visit Provider Nurse Practitioner Family
DX: F43.21 Adjustment disorder with depressed mood (principal); Z79.899 Other long term (current) drug therapy
CPT/HCPCS: 36415; 80053; 84443; 85025

== ENCOUNTER 2020-06-04 17:56 | Outpatient (REF) | payer SELFPAY ==
[2020-06-04 21:50] LABS: Abs Immature Grans 0.03 10^3/uL (0.0-0.06); Absolute Basophil Count 0.02 10^3/uL (0.0-0.2); Absolute Eosinophil Count 0.09 10^3/uL (0.0-0.7); Absolute Lymphocyte Count 1.34 10^3/uL (1.2-3.4); Absolute Monocyte Count 0.88 10^3/uL (0.1-0.8); Absolute Neutrophil Count 2.94 10^3/uL (1.2-6.7); Basophils % 0.4; Eosinophils % 1.7; HCT 39.8 % (40.0-50.0); HGB 13.2 g/dL (13.5-17.5); Immature Grans % 0.6; Lymphocytes % 25.3; MCHC 33.2 % (32.0-36.0); MCV 102.6 fL (80-95); Monocytes % 16.6; Neutrophils % 55.4; Nucleated RBC 0 %; Platelet Count 340 10^3/uL (130-400); RBC 3.88 10^6/uL (4.36-5.78); RDW 13.5 % (11.8-14.1); RDW-SD 51.3 fL
[2020-06-04 22:31] LABS: ALT 17 U/L (16-63); AST 19 U/L (15-37); Albumin 2.7 g/dL (3.4-5.0); Alkaline Phosphatase 106 U/L (46-116); Anion Gap 5.4 mmol/L (3-11); BUN 17 mg/dL (7-18); Bilirubin, Total 0.5 mg/dL (0.2-1.0); CO2 30.6 mmol/L (21.0-32.0); CREATININE 0.8 mg/dL (0.70-1.30); Calcium 8.6 mg/dL (8.5-10.1); Chloride 105 mmol/L (98-107); Glucose 99 mg/dL (74-106); Magnesium 2.2 mg/dL (1.8-2.4); Potassium 4.9 mmol/L (3.5-5.1); Sodium 141 mmol/L (136-145); TSH (W/Ref FT4) 1.58 uIU/mL (0.36-3.74); Total Protein 6.6 g/dL (6.4-8.2); Vitamin B12 897 pg/mL (193-986)
== END 2020-06-04 17:57 | disposition home or self-care (01) ==
LOC: LBN 17:56
PROVIDERS: PCP Nurse Practitioner; Visit Provider Nurse Practitioner Adult Health
DX: R93.89 Abnormal findings on diagnostic imaging of other specified body structures (principal); R26.89 Other abnormalities of gait and mobility; R29.6 Repeated falls; R62.7 Adult failure to thrive
CPT/HCPCS: 80053; 82607; 83735; 84443; 85025

== ENCOUNTER 2020-06-08 10:51 | Inpatient (IN) | payer MEDICARE, SELFPAY ==
[2020-06-08] VITALS (43 sets, daily range): BP systolic 107–142; BP diastolic 51–105; PULSE 45–78; RESP 9–28; TEMP 36.1–36.6; O2SAT 89–98
--- NOTE | 2020-06-08 10:45 | RT.EKG_ITS ---
APPROVED REPORT Exam: Resting ECG Patient Location: E HR:54 bpm ECG Measurements Heart Rate 54 AXIS FL 149 P 84 QRSd 99 QRS -48 QT 450 T -23 QTc 428 Conclusion Sinus bradycardia...rate< 60 Left axis deviation...QRS axis (-30,-90) Nonspecific T abnormalities, diffuse leads...T <-0.10mV, ant/lat/inf. No STEMI. I have reviewed and interpreted ECG and agree with software generated interpretation.
--- NOTE | 2020-06-08 10:49 | W.ED.GENAD ---
Discharge Plan Disposition Patient Disposition: [facility] INPATIENT Condition: Stable Discharge Details Clinical Impression: Pulmonary embolism, Episode of syncope, Fall, Closed head injury Admit Date/Time: 06/08/20 14:39 Admit Provider: Jaden Cartwright Attending Provider: Jaden Cartwright Primary Care Provider: Jaclyn Cantu ED Provider: Leticia Georges Discharge Data Discharge Date/Time-TO BE ENTERED AT DEPARTURE: 06/08/20 15:36 Medical Decision Making 85-year-old male with a history of anxiety, depression, hypertension, hyperlipidemia, prostate cancer presents from health and rehab for dizziness, syncopal episode resulting in fall with head injury EKG on arrival notes a rate of 54, sinus with less than [address] depression T wave inversion in inferior and anterior leads. No STEMI Patient is quite soft-spoken and stutters at baseline. He is oriented x3. He denies any complaint of headache or chest pain. He is moving all extremities without evidence of pain with range of motion orthopedic deformity Considering patient's age, will check screening labs, urinalysis, CT head and cervical spine, chest x-ray and pelvis x-ray. Will give IV fluids and meclizine. Labs and imaging reviewed. White blood cell count 5. Hemoglobin 13. Troponin negative. Urinalysis notes 5-10 WBCs with few bacteria, negative leukocyte esterase and negative nitrite. Urine culture sent. CT head and cervical spine negative for acute findings. Chest x-ray notes questionable patchy densities in the lower lobes, CT chest may be obtained. As patient had a syncopal episode, will obtain a CT chest to r/o PE. CT chest noted: IMPRESSION: 1. Pulmonary emboli distal right main pulmonary artery and proximal segmental branches right middle lobe and right lower lobe. 2. RV/LV ratio 1.4 suggesting right heart strain. 3. 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 Recommend follow-up chest CT 3 months. 4. Images are degraded by motion. As pt has remained hemodynamically stable, neg troponin, normal BP, will admit here for tele monitoring. Case d/w hospitalist who accepts pt for admission. A dose of lovenox 1mg/kg. SC given. Medical Records Medical records reviewed: Yes I reviewed the patient's medical records. Imaging Data Radiologic Study: Radiologist's impression: XR CHEST 2V PA LATERAL CLINICAL HISTORY: s/p fall, dizziness, r/o acute disease TECHNIQUE: COMPARISON: No exams were available for comparison FINDINGS: AP and lateral views were obtained. Cardiac size is within normal limits. There are patchy vaguely nodular areas of increased radiodensity predominantly in the lower lung dumont, particularly on the left. Possibility of acute pneumonia is raised, please correlate regarding the possibility of aspiration. Follow-up radiographs requested, chest CT may be obtained for further evaluation if clinically indicated. CTA Chest With Contrast Exam date and time: 06/08/2020 12:21 PM Age: 85 years old Clinical indication: Other: Syncope episode, R/O pe, pneumonia TECHNIQUE: Imaging protocol: Computed tomographic angiography of the chest with contrast. 3D rendering (Not supervised by radiologist): MIP and/or 3D reconstructed images were created by the technologist. Radiation optimization: All CT scans at this facility use at least one of these dose optimization techniques: automated exposure control; mA and/or kV adjustment per patient size (includes targeted exams where dose is matched to clinical indication); or iterative reconstruction. Contrast material: VISIPAQUE 320; Contrast volume: 58 ml; Contrast route: INTRAVENOUS (IV); COMPARISON: CR XR CHEST 2V PA LATERAL 06/08/2020 11:47 AM FINDINGS: Pulmonary arteries: Filling defects in distal main right pulmonary artery and extending into the proximal segmental pulmonary arteries of right middle lobe right lobe. Aorta: Unremarkable. No aortic aneurysm. No aortic dissection. Lungs: Diffuse bilateral areas nodular infiltrate and pulmonary nodules, most marked in the left lower lobe where there are several larger nodules measuring to 7 mm. Most of the other nodules have a peribronchovascular distribution suggestive atypical mycobacterial infection. Areas of atelectasis including subpleural atelectasis in the lingula which has a masslike appearance. Diffuse bronchial wall thickening and mild bronchiectasis. Pleural spaces: Unremarkable. No pneumothorax. No pleural effusion. Heart: RV/LV ratio 1.4. Mild cardiac enlargement. No pericardial effusion. Lymph nodes: Prominent mediastinal and hilar lymph nodes. Bones/joints: The bones are demineralized. Mild degenerative arthritis in the spine. Soft tissues: Unremarkable. Other findings: Images are degraded by motion. IMPRESSION: 1. Pulmonary emboli distal right main pulmonary artery and proximal segmental branches right middle lobe and right lower lobe. 2. RV/LV ratio 1.4 suggesting right heart strain. 3. 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 Recommend follow-up chest CT 3 months. 4. Images are degraded by motion CT HEAD CERVICAL SPINE WO COMPARISON: CT CT SINUS WO from 01/17/2019 FINDINGS: CT examination of the cervical spine was performed without contrast administration. There are degenerative changes of the cervical spine not unusual in this age group. There is no evidence of acute cervical spine fracture or dislocation. Intervertebral disc spaces are well maintained. Tracheolaryngeal structures appear intact. No cervical mass or adenopathy. Noncontrast cranial CT was performed. There is moderate generalized cerebral atrophy. No evidence of acute intracranial hemorrhage, mass effect, or midline shift. No calvarial fracture. The orbital and temporal bone structures appear intact. The visualized mastoid air cells appear clear. There is mucoperiosteal thickening of the paranasal sinuses consistent with a mild to moderate chronic pansinusitis. IMPRESSION: No evidence of acute cervical spine injury. No evidence of acute intracranial injury. ECG Data Attestation: I personally reviewed and interpreted this ECG (s) as follows: Interpretation: Rate of 54, sinus, less than [address] depression and T wave inversion in 2, 3, aVF, V3 and V4. This is not seen in EKG July 2018. No STEMI. SC 149. First 99. QTc 428 HPI General Mode of arrival: EMS. Date/Time Provider Initiated Documentation: 06/08/20 10:58. Limitations to Documentation: physical limitation. Information obtained by: patient and EMS. HPI Narrative: Patient is a an 84-year-old male with a history of depression, anxiety, hypertension, hyperlipidemia, asthma, prostate cancer who presents from [facility] and rehab for acute dizziness and syncopal episode with fall and head injury prior to arrival. Patient states he was in the bathroom when he was standing and became dizzy and passed out and hit his head on the toilet. Patient denies any headache, neck pain, chest pain, abdominal pain, back pain, hip pain or other extremity pain. He states he has a history of dizziness which he describes as a spinning sensation. Patient states he has not been eating and drinking well for quite some time due to decreased appetite. Patient states he uses a walker or cane with ambulation. Related Data Home Medications Medication Instructions Recorded Confirmed dorzolamide 1 drp OS BID drp NS 05/09/12 06/08/20 latanoprost 1 drp OU QPM drp NS 05/09/12 06/08/20 vitamin B complex 1 tab PO DAILY 07/28/18 06/08/20 aspirin 81 mg tablet,delayed 81 mg PO DAILY #90 tab 08/22/18 06/08/20 release timolol maleate 0.5 % eye drops 1 drp OP BID 08/22/18 06/08/20 acetaminophen 650 mg PO Q4H PRN PRN 06/08/20 06/08/20 cholecalciferol (vitamin D3) 25 mcg PO DAILY 06/08/20 06/08/20 escitalopram oxalate 5 mg PO DAILY 06/08/20 06/08/20 quetiapine [Seroquel] 12.5 mg PO BID PRN 06/08/20 06/08/20 Previous Rx's Medication Instructions Recorded aspirin 81 mg tablet,delayed 81 mg PO DAILY #90 tab 08/22/18 release Allergies Allergy/AdvReac Type Severity Reaction Status Date / Time brimonidine tartrate Allergy Intermediate eye Verified 06/08/20 10:56 [From Combigan] irritation,rash buspirone Allergy Intermediate Verified 06/08/20 10:56 shellfish derived Allergy Intermediate Swelling/Ed Verified 06/08/20 10:56 earnest timolol maleate Allergy Intermediate eye Verified 06/08/20 10:56 [From Combigan] irritation,rash hydrocodone Allergy Verified 06/08/20 10:56 codeine AdvReac Intermediate Nausea Verified 06/08/20 10:56 ibuprofen [From Advil] AdvReac Intermediate Nausea Verified 06/08/20 10:56 naproxen sodium [From Aleve] AdvReac Intermediate Nausea Verified 06/08/20 10:56 indomethacin [From Indocin] AdvReac Mild Diarrhea Verified 06/08/20 10:56 General DARRICK: 2 Review of Systems All systems reviewed & are unremarkable except as noted in HPI and below Constitutional Constitutional: Reports as per HPI, Denies chills and Denies fever(s) Eyes Eyes: Denies blurry vision ENT Ears, Nose, Mouth, and Throat: Reports dizziness, Denies sore throat and Denies throat swelling Cardiovascular Cardiovascular: Denies chest pain and Denies dyspnea Respiratory Respiratory: Denies cough and Denies dyspnea Gastrointestinal Gastrointestinal: Denies abdominal pain, Denies diarrhea and Denies vomiting Genitourinary Genitourinary: Denies hematuria and Denies dysuria Musculoskeletal Musculoskeletal: Denies back pain and Denies numbness Integumentary/Breasts Skin/Breast: Denies lesions and Denies rash Neurologic Neurologic: Reports dizziness, Denies localized weakness and Denies numbness Allergic/Immunologic Allergic/Immunologic: Denies throat swelling [facility] Medical History (Updated 06/08/20 @ 20:00 by Jaden Cartwright) Anxiety followed at [facility] 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 Vieyra Depression (08/28/15) Deviated nasal septum Glaucoma Lumbago discectomy Macrocytosis (01/25/14) Polyp of colon (05/18/12) MIRZA STROUD; tUBULAR ADENOMA Pulmonary hypertension Rectal/anal stenosis TIA (transient ischemic attack) Is not clear if this is a TIA or some other neurologic episodes such as a seizure. It could have also been brought about by cardiac dysrhythmia and will get a Holter regarding this. He needs a carotid ultrasound to rule out carotid disease. We will follow-up with him soon . Tricuspid valve regurgitation, secondary Pulmonary hypertension and tricuspid regurg are likely linked. His anxiety is preventing him for from getting further investigation right now. He also is basically asymptomatic. We will try to work on this when he returns in the fall. Urge incontinence Surgical History CERVICAL SPINE FUSING 07/2013; C3-C4 WITH CADAVER BONE AND SECURING WITH TITANIUM PLATE Colonoscopy - IV Sedation (05/16/12) DR. MIRZA CESPEDES (TUBULAR ADENOMA) Extraction of cataract (06/12/14) [facility]-06/12/14 RIGHT EYE; S/P LEFT 05/22/14 History of cataract removal with insertion of prosthetic lens History of lumbar discectomy History of radical prostatectomy for prostate cancer Status post cervical spinal arthrodesis Status post lumbar laminectomy Family History Mother No problems noted. Father Leiomyosarcoma Sister Hyperlipidemia Grandfather No problems noted. Grandfather No problems noted. Grandmother No problems noted. Grandmother No problems noted. Maternal Aunt Personal history of malignant neoplasm COLON Son No problems noted. Son No problems noted. Social History Smoking/Tobacco Use Status: Never Smoking risk assessment performed?: Yes Alcohol Intake: former Drug use: Never Substance use type: does not use Housing: house Do you feel safe at home: Yes Do you feel safe in your relationship?: Yes Exam Const General: cooperative and no acute distress Orientation: awake and oriented x3 Other: Soft spoken. Stutters at baseline. HENMT Head: normal to inspection Ears: hearing grossly normal bilaterally, external ears normal and TM's normal bilaterally General nose exam: external nose normal Face and sinus: normal facial exam Mouth: mucous membranes dry Eyes General: appearance normal, both eyes and all related structures Pupils: PERRL EOM: EOM intact bilaterally Neck Neck: normal visual inspection and No submandibular swelling Lymphatic: no lymphadenopathy noted Chest Chest: normal inspection of the chest, normal palpation of entire chest wall and no tenderness Resp Effort & Inspection: normal respiratory effort and able to speak in complete sentences Auscultation: clear to auscultation bilaterally Cardio Rate: regular rate Rhythm: regular rhythm GI Inspection: normal to inspection Palpation: soft, not firm, not rigid and nontender Auscultation: normal bowel sounds Back/Spine/Pelvis Cervical Spine: No cervical spinal tenderness Thoracic/Lumbar Spine: thoracic and lumbar spine normal to inspection, No thoracic spinal tenderness and No lumbar spinal tenderness Pelvis: no pain with anterior-posterior compression and pain with lateral compression Skin General skin exam: no rashes or lesions noted Neuro General: patient alert, patient awake, patient oriented x3, gait normal, moves all extremities, no meningeal signs and no focal motor deficits Cognition: normal cognition Speech: speech normal Motor: muscle tone normal throughout and strength 5/5 throughout Sensory Exam: no sensory deficits noted Extrem General: normal to inspection, full ROM, capillary refill normal, no calf tenderness bilaterally and no edema Psych Appearance: grossly normal Mental Status: mental status grossly normal Speech and Movement: speech and movement normal Affect: blunted
--- NOTE | 2020-06-08 11:15 | DI.CT_ITS ---
EXAM: CT HEAD CERVICAL SPINE WO COMPARISON: CT CT SINUS WO from 01/17/2019 FINDINGS: CT examination of the cervical spine was performed without contrast administration. There are degenerative changes of the cervical spine not unusual in this age group. There is no evidence of acute cervical spine fracture or dislocation. Intervertebral disc spaces are well maintained. Tracheolaryngeal structures appear intact. No cervical mass or adenopathy. Noncontrast cranial CT was performed. There is moderate generalized cerebral atrophy. No evidence of acute intracranial hemorrhage, mass effect, or midline shift. No calvarial fracture. The orbital and temporal bone structures appear intact. The visualized mastoid air cells appear clear. 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 IMPRESSION: No evidence of acute cervical spine injury. No evidence of acute intracranial injury. RADIATION DOSE DELIVERED: 1,339.98mGy.cm Total DLP 1,339.98mGy.cm Total DLP DATA REPOSITORY: All CT scans at this facility are submitted to the National Radiology Data Registry (NRDR) Dose Index Registry (DIR) with the [employer] (ACR). RADIATION OPTIMIZATION: All CT scans at this facility use at least one of these dose optimization te chniques: automated exposure control; mA and/or kV adjustment per patient size (includes targeted exa ms where dose is matched to clinical indication); or iterative reconstruction.
--- NOTE | 2020-06-08 11:15 | DI.RAD_ITS ---
EXAM: XR PELVIS AP CLINICAL HISTORY: s/p fall, r/o acute fx TECHNIQUE: COMPARISON: No exams were available for comparison FINDINGS: Single AP view of the pelvis was obtained. The iliac wings are not visualize for technical reasons. Single AP view is not adequate to exclude fracture, but I see no gross fracture on the film obtained . IMPRESSION: RADIATION DOSE DELIVERED: Total DLP
--- NOTE | 2020-06-08 11:15 | DI.RAD_ITS ---
EXAM: XR CHEST 2V PA LATERAL CLINICAL HISTORY: s/p fall, dizziness, r/o acute disease TECHNIQUE: COMPARISON: No exams were available for comparison FINDINGS: AP and lateral views were obtained. Cardiac size is within normal limits. There are patchy vaguely nodular areas of increased radiodensity predominantly in the lower lung dumont, particularly on the l eft. Possibility of acute pneumonia is raised, please correlate regarding the possibility of aspirat ion. Follow-up radiographs requested, chest CT may be obtained for further evaluation if clinically indicated. IMPRESSION: RADIATION DOSE DELIVERED: Total DLP
[2020-06-08 11:37] LABS: Abs Immature Grans 0.04 10^3/uL (0.0-0.06); Absolute Basophil Count 0.01 10^3/uL (0.0-0.2); Absolute Eosinophil Count 0.04 10^3/uL (0.0-0.7); Absolute Lymphocyte Count 0.85 10^3/uL (1.2-3.4); Absolute Monocyte Count 0.54 10^3/uL (0.1-0.8); Absolute Neutrophil Count 4.51 10^3/uL (1.2-6.7); Basophils % 0.2; Eosinophils % 0.7; HCT 40.5 % (40.0-50.0); HGB 13.3 g/dL (13.5-17.5); Immature Grans % 0.7; Lymphocytes % 14.2; MCH 34.4 pg (27.0-33.0); MCHC 32.8 % (32.0-36.0); MCV 104.7 fL (80-95); MPV 8.8 fL (8.0-11.0); Neutrophils % 75.2; Nucleated RBC 0 %; Platelet Count 333 10^3/uL (130-400); RBC 3.87 10^6/uL (4.36-5.78); RDW 13.9 % (11.8-14.1); RDW-SD 53.4 fL; WBC 5.99 10^3/uL (4.4-10.8)
[2020-06-08 11:51] LABS: PTT Activated 18.7 sec (21.0-27.5); Prothrombin Time 10.4 sec (9.3-11.0)
[2020-06-08 11:54] LABS: ALT 16 U/L (16-63); AST 25 U/L (15-37); Albumin 2.8 g/dL (3.4-5.0); Alkaline Phosphatase 102 U/L (46-116); Anion Gap 7.6 mmol/L (3-11); BUN 32 mg/dL (7-18); Bilirubin, Total 0.6 mg/dL (0.2-1.0); CO2 29.4 mmol/L (21.0-32.0); CREATININE 0.8 mg/dL (0.70-1.30); Calcium 9.4 mg/dL (8.5-10.1); Chloride 107 mmol/L (98-107); Glucose 151 mg/dL (74-106); Magnesium 2.2 mg/dL (1.8-2.4); Potassium 4.9 mmol/L (3.5-5.1); Sodium 144 mmol/L (136-145); Total Protein 7.2 g/dL (6.4-8.2); Troponin I < 0.05 ng/mL (<0.06)
[2020-06-08] MEDS: Meclizine 25 MG TAB PO (12:10)
--- NOTE | 2020-06-08 12:13 | DI.VRAD_ITS ---
PROCEDURE INFORMATION: Exam: CT Head Without Contrast Exam date and time: 06/08/2020 11:26 AM Age: 85 years old Clinical indication: Injury or trauma; Fall; Fracture, traumatic injury; Closed TECHNIQUE: Imaging protocol: Computed tomography of the head without contrast. COMPARISON: CT HEAD FOR STROKE PROTOCOL 08/12/2018 5:21 PM FINDINGS: Brain: Pollack-white matter differentiation is normal. There is no mass effect or midline shift. There is no intra-axial hemorrhage. There are mild confluent and patchy foci of periventricular and subcortical white matter hypodensities, probably reflecting chronic microvascular ischemic disease. There is parenchymal volume loss with compensatory dilatation of ventricles, sulci and basilar cisterns. There is no extra-axial fluid collection. Cerebral ventricles: No ventriculomegaly. Bones/joints: Unremarkable. No acute fracture. Paranasal sinuses: There is mucosal thickening in the bilateral sphenoidal sinuses, posterior and anterior ethmoidal air cells, right greater than left and bilateral frontal sinuses, right greater than left. There is diffuse mucosal thickening in the bilateral maxillary sinuses. There is suspicion of air-fluid level in the bilateral maxillary sinuses. Mastoid air cells: Visualized mastoid air cells are well aerated. Orbital cavity: Patient is status post cataract extraction bilaterally. Soft tissues: Unremarkable. IMPRESSION: 1. No acute intracranial abnormality. 2. Diffuse sinus disease. There is mild air-fluid level in the bilateral maxillary sinuses suspicious of acute sinusitis. PROCEDURE INFORMATION: Exam: CT Cervical Spine Without Contrast Exam date and time: 06/08/2020 11:26 AM Age: 85 years old Clinical indication: Injury or trauma; Fall; Fracture, traumatic injury; Closed TECHNIQUE: Imaging protocol: Computed tomography images of the cervical spine without contrast. COMPARISON: CT HEAD FOR STROKE PROTOCOL 08/12/2018 5:21 PM FINDINGS: Bones/joints: Visualized bones are demineralized. There is no acute fracture or subluxation. Craniocervical junction is normal. There is anterior fusion device at C3 and C4 with partial fusion the vertebral bodies. Additionally, there is partial fusion of C4 and C5. There is subtle grade 1 anterolisthesis of C7 over T1. Vertebral body heights are maintained. Posterior elements are intact. Facets are normally located. Discs/Spinal canal/Neural foramina: There are endplates degenerative changes and loss of disc height at C5-C6 and C6-C7. Intervertebral disc spaces are normal. Lungs: There is mild pleuroparenchymal apical thickening. Soft tissues: Unremarkable. Other findings: There is multilevel cervical spondylosis with posterior osteophyte disc complex and uncovertebral osteophytes. IMPRESSION: 1. No acute fracture or subluxation. 2. Cervical spondylosis. Dictated and Authenticated by: Jose Gurrola MD. Ordering:KIN Kelly MD
--- NOTE | 2020-06-08 12:16 | DI.VRAD_ITS ---
PROCEDURE INFORMATION: Exam: XR Chest Exam date and time: 06/08/2020 11:55 AM Age: 85 years old Clinical indication: Injury or trauma; Fall; Blunt trauma (contusions or hematomas) TECHNIQUE: Imaging protocol: XR of the chest. Views: 2 views. COMPARISON: No relevant prior studies available. FINDINGS: Lungs: Patchy bilateral areas of nodular interstitial prominence, especially in left lung base. This could be due to inflammatory process and infection or neoplasia. CT would be helpful in further evaluation. Bronchial wall thickening. Calcified granuloma right midlung. Pleural spaces: Unremarkable. No pleural effusion. No pneumothorax. Heart/Mediastinum: Unremarkable. No cardiomegaly. Vasculature: Aortic calcifications. Bones/joints: Old right clavicle fracture. IMPRESSION: Patchy bilateral areas of nodular interstitial prominence, especially in left lung base. This could be due to inflammatory process and infection or neoplasia. CT would be helpful in further evaluation. Dictated and Authenticated by: Nadya Tamez MD. Ordering:KIN Kelly MD
[2020-06-08] MEDS: Normal Saline 500 ML IV (12:18)
[2020-06-08] MEDS: Normal Saline Flush 10 ML SYR IVP ×2 (12:19→13:23)
--- NOTE | 2020-06-08 12:20 | DI.VRAD_ITS ---
PROCEDURE INFORMATION: Exam: XR Pelvis Exam date and time: 06/08/2020 11:54 AM Age: 85 years old Clinical indication: Injury or trauma; Fall; Blunt trauma (contusions or hematomas); Does not apply; Pelvic region TECHNIQUE: Imaging protocol: XR pelvis. Views: 1 or 2 view. COMPARISON: No relevant prior studies available. FINDINGS: Bones/joints: The bones are demineralized. 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 Soft tissues: Unremarkable. Gastrointestinal tract: Large amount of stool in the colon and rectum. IMPRESSION: No acute findings Dictated and Authenticated by: Nadya Tamez MD. Ordering:KIN Kelly MD
[2020-06-08] MEDS: Normal Saline - Diluent 50 ML VIAL IV (13:23)
--- NOTE | 2020-06-08 13:23 | DI.CT_ITS ---
EXAM: CT CHEST PE CTA CLINICAL HISTORY: syncope episode, r/o PE, pneumonia. TECHNIQUE: Imaging Protocol: Axial CT angiography was performed with multi-slice acquisition and mu lti-planar and/or 3D reconstructions. CONTRAST MATERIAL: Intravenous: Omnipaque 350 Contrast volume:structured data in ml COMPARISON: No exams were available for comparison FINDINGS: CT angiography of the chest was performed with intravenous infusion of 58 cc of Visipaque 320 There are multiple reticulo nodular radiodensities seen bilaterally particularly in right lower lobe and left lower lobe. Multiple focal nodular radiodensities are noted, the largest measuring about 11 millimeters in diameter in the left lung base posteriorly. Findings are nonspecific and may represe nt infectious process. Possibility of con current neoplasia not excluded. No pleural effusion. Trac heobronchial tree appears intact. The there is a saddle embolus located at the junction of right middle and lower lobe pulmonary arteri es. Additional emboli are seen more peripherally in these circulations. There is right ventricular enlargement with respect to the left ventricle and slight concavity of the interventricular septum, t hese findings suggest right heart strain. Significant reflux into hepatic veins also noted consisten t with right heart strain.. Thoracic aorta is of normal diameter, no thoracic aortic aneurysm or dis section, major branch vessels appear intact. No mediastinal or hilar adenopathy. Images obtained through the upper abdomen show unremarkable appearance of the visualized portions of the liver, spleen, pancreas, adrenals, and kidneys. IMPRESSION: Pulmonary embolic disease as described above. There is evidence of right heart strain. Additionally there are bilateral multi focal reticular and nodular infiltrates and multiple pulmonary nodules, findings may represent infectious process but the possibility of neoplastic disease is rais ed. Close follow-up recommended following treatment. RADIATION DOSE DELIVERED: 181.12mGy.cm Total DLP 181.12mGy.cm Total DLP DATA REPOSITORY: All CT scans at this facility are submitted to the National Radiology Data Registry (NRDR) Dose Index Registry (DIR) with the [employer] (ACR). RADIATION OPTIMIZATION: All CT scans at this facility use at least one of these dose optimization te chniques: automated exposure control; mA and/or kV adjustment per patient size (includes targeted exa ms where dose is matched to clinical indication); or iterative reconstruction.
--- NOTE | 2020-06-08 13:46 | DI.VRAD_ITS ---
PROCEDURE INFORMATION: Exam: CTA Chest With Contrast Exam date and time: 06/08/2020 12:21 PM Age: 85 years old Clinical indication: Other: Syncope episode, R/O pe, pneumonia TECHNIQUE: Imaging protocol: Computed tomographic angiography of the chest with contrast. 3D rendering (Not supervised by radiologist): MIP and/or 3D reconstructed images were created by the technologist. Radiation optimization: All CT scans at this facility use at least one of these dose optimization techniques: automated exposure control; mA and/or kV adjustment per patient size (includes targeted exams where dose is matched to clinical indication); or iterative reconstruction. Contrast material: VISIPAQUE 320; Contrast volume: 58 ml; Contrast route: INTRAVENOUS (IV); COMPARISON: CR XR CHEST 2V PA LATERAL 06/08/2020 11:47 AM FINDINGS: Pulmonary arteries: Filling defects in distal main right pulmonary artery and extending into the proximal segmental pulmonary arteries of right middle lobe right lobe. Aorta: Unremarkable. No aortic aneurysm. No aortic dissection. Lungs: Diffuse bilateral areas nodular infiltrate and pulmonary nodules, most marked in the left lower lobe where there are several larger nodules measuring to 7 mm. Most of the other nodules have a peribronchovascular distribution suggestive atypical mycobacterial infection. Areas of atelectasis including subpleural atelectasis in the lingula which has a masslike appearance. Diffuse bronchial wall thickening and mild bronchiectasis. Pleural spaces: Unremarkable. No pneumothorax. No pleural effusion. Heart: RV/LV ratio 1.4. Mild cardiac enlargement. No pericardial effusion. Lymph nodes: Prominent mediastinal and hilar lymph nodes. Bones/joints: The bones are demineralized. Mild degenerative arthritis in the spine. Soft tissues: Unremarkable. Other findings: Images are degraded by motion. IMPRESSION: 1. Pulmonary emboli distal right main pulmonary artery and proximal segmental branches right middle lobe and right lower lobe. 2. RV/LV ratio 1.4 suggesting right heart strain. 3. 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 Recommend follow-up chest CT 3 months. 4. Images are degraded by motion THIS REPORT CONTAINS FINDINGS THAT MAY BE CRITICAL TO PATIENT CARE. The findings were verbally communicated via telephone conference with derrick damon at 1:44 PM EDT on 06/08/2020. The findings were acknowledged and understood. Dictated and Authenticated by: Nadya Tamez MD. Ordering:KIN Kelly MD
[2020-06-08] MEDS: Lidocaine 2% Jelly 6 ML SYR (13:56)
--- NOTE | 2020-06-08 13:57 | NUR.NOTE ---
Nursing Note: Ivelisse [phone]
[2020-06-08 14:01] LABS: Bilirubin Negative (Negative); Blood Moderate (Negative); Clarity Clear (Clear); Glucose Negative (Negative); Ketones 15 mg/dL (Negative); Leukocyte Esterase Negative (Negative); Nitrite Negative (Negative)
[2020-06-08 14:23] LABS: Bacteria Few HPF (Negative); Epithelial Cells Rare HPF (Negative); Other Cells Few Renal (Negative)
[2020-06-08 14:24] LABS: C & S Indicated? Yes; Casts Negative LPF (Negative); Crystals Many Calcium Oxalate HPF (Negative); Mucus Heavy (Negative)
[2020-06-08 14:44] LABS: Source Nasal/Nares
[2020-06-08] MEDS: Enoxaparin 60 MG/0.6 ML SYR 50 MG SC (15:16)
--- NOTE | 2020-06-08 16:54 | HPE_ITS ---
Date of service: 06/08/20 Time of Service: 16:54 Assessment and Plan Assessment and plan (1) Pulmonary embolism: Status: Acute Assessment and plan: Saddle embolus involving right lower lobe and right middle lobe pulmonary arteries. CT evidence of right ventricular strain. Historically however patient's had evidence of pulmonary hypertension and RV enlargement. Fzdct-nm-lycm ultrasound of his heart showed normal LV function with RV enlargement and vigorous RV systolic function. formal echo will be done on Wednesday however he is hemodynamically stable and not hypoxemic and he does not want heroic aggressive intervention in the event of cardiopulmonary collapse. Therefore, transfer to tertiary center would not change his treatment plan. He will continue on lovenox for 24 to 48 hours then he will need to transition to an oral agent. A DOAC would be ideal due to simplicity, warfarin however would be more easily reversed in the setting of acute bleeding. I will place him on a PPI for GI protection. Qualifiers: Acute cor pulmonale presence: with acute cor pulmonale Chronicity: acute Pulmonary embolism type: saddle Qualified Code(s): I26.02 - Saddle embolus of pulmonary artery with acute cor pulmonale (2) Closed head injury: Status: Acute Assessment and plan: No acute intracranial injury nor cervical injury was noted on CT scans of head and neck. Will monitor for any neuro changes since he will be on anticoagulation. Qualifiers: Encounter type: initial encounter Qualified Code(s): S09.90XA - Unspecified injury of head, initial encounter (3) Syncope: Status: Acute Assessment and plan: presumably d/t his PE. However, he tells me that he has had several blackout spells in the recent past. We will continue w/ telemetry monitoring and get outpatient 30 day event recorder upon discharge. 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 These are nonspecific finding and can be followed up on an ou tpatient basis. Although he had syncopal spell there was no evidence for aspiration. However in the event that he spikes a fever he should have blood cultures obtained and begun on empiric antibiotics History of Present Illness History of Present Illness Chief Complaint: syncope, PE Narrative: 85-year-old Micronesian male who is a resident of [facility] currently residing at [facility] after recent hospitalization at [facility]. Patient gives a history of chronic generalized weakness and gait instability and frequent falls. Today he had an unwitnessed fall which he says that he blacked out. This was preceded by dizziness but no chest pain or shortness of breath. Evaluation in the emergency department included CTA of his chest that demonstrated a saddle embolus at the junction of the right middle and lower lobe pulmonary arteries as well as additional emboli seen peripherally in the same areas. There is also suggestion of right ventricular strain as evidenced by right ventricular enlargement and slight concavity of the interventricular septum with significant reflux into the hepatic veins. Thoracic aorta was of normal diameter with no aneurysm or dissection and no mediastinal or hilar adenopathy was seen. He does have multiple reticulonodular radiodensities seen bilaterally particularly in the right lower lobe and left lower lobe with multiple focal nodular radiodensities with the largest measuring 11 mm in diameter in the left lung base posteriorly. The radiologist cannot exclude the possibility of neoplasia. Laboratory studies show a chronic macrocytosis with MCV of 104 and a hemoglobin of 13.3 which is relatively stable over the last several months. CMP was remarkable for an elevated BUN of 32 with a normal creatinine 0.8. 4 days ago his BUN was 17. Glucose is mildly elevated at 151. LFTs were normal and troponin level was less than 0.05. Recent B12 level was normal at 897. Pro time was normal at 10.4 with an INR 1.0 APTT was low at 18.7. Urinalysis was remarkable for moderate amount of blood 15 mg/dL ketones with 5-10 white cells rare epithelial cells and many calcium oxalate crystals with few bacteria. In a few renal epithelial cells. Culture was ordered. EKG was performed and showed sinus bradycardia at a rate of 54 bpm with T wave abnormalities across the anterior precordial leads consistent with RV strain. Patient was started on Lovenox 50 mg subcutaneous at 1400. He is admitted to the medical/surgical floor for continued treatment of a pulmonary embolus as well as cardiac monitoring for arrhythmias that could explain his syncope. Formal echocardiogram will be performed on Wednesday along with venous duplex scan of his legs. Patient has indicated to me that he does not want life-sustaining measures performed in the event of cardiopulmonary arrest. He has a living will on file as well as paperwork indicating his Ivelisse is his DURABLE POWER OF A TTORNEY. Review of Systems Constitutional Constitutional: Reports fatigue, Reports frequent falls, Denies headache(s) and Reports lethargy Eyes Eyes: Reports dry eyes ENT Ears, Nose, Mouth, and Throat: Reports abnormal hearing, Reports dysphagia, Reports dizziness and Denies headache(s) Cardiovascular Cardiovascular: Denies chest pain, Reports lightheadedness, Denies palpitations and Denies dyspnea Respiratory Respiratory: Reports cough, Denies hemoptysis and Denies dyspnea Gastrointestinal Gastrointestinal: Denies melena, Reports constipation, Reports dysphagia, Denies nausea and Denies vomiting Genitourinary Genitourinary: Reports system reviewed and no additional complaints, except as documented Musculoskeletal Musculoskeletal: Reports system reviewed and no additional complaints, except as documented Integumentary/Breasts Skin/Breast: Reports system reviewed and no additional complaints, except as documented Neurologic Neurologic: Reports abnormal hearing, Reports dizziness, Reports frequent falls, Denies headache(s) and Reports memory loss Psychiatric Psychiatric: Reports anxiety and Reports memory loss Endocrine Endocrine: Reports fatigue and Denies palpitations Hematologic/Lymphatic Hematologic/Lymphatic: Reports system reviewed and no additional complaints, except as documented Allergic/Immunologic Allergic/Immunologic: Reports system reviewed and no additional complaints, except as documented [facility] Medical History (Updated 06/08/20 @ 20:00 by Jaden Cartwright) Anxiety followed at [facility] 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 Vieyra Depression (08/28/15) Deviated nasal septum Glaucoma Lumbago discectomy Macrocytosis (01/25/14) Polyp of colon (05/18/12) MIRZA STROUD; tUBULAR ADENOMA Pulmonary hypertension Rectal/anal stenosis TIA (transient ischemic attack) Is not clear if this is a TIA or some other neurologic episodes such as a se izure. It could have also been brought about by cardiac dysrhythmia and will get a Holter regarding this. He needs a carotid ultrasound to rule out carotid disease. We will follow-up with him soon . Tricuspid valve regurgitation, secondary Pulmonary hypertension and tricuspid regurg are likely linked. His anxiety is preventing him for from getting further investigation right now. He also is basically asymptomatic. We will try to work on this when he returns in the fall. Urge incontinence Surgical History CERVICAL SPINE FUSING 07/2013; C3-C4 WITH CADAVER BONE AND SECURING WITH TITANIUM PLATE Colonoscopy - IV Sedation (05/16/12) DR. MIRZA CESPEDES (TUBULAR ADENOMA) Extraction of cataract (06/12/14) [facility]-06/12/14 RIGHT EYE; S/P LEFT 05/22/14 History of cataract removal with insertion of prosthetic lens History of lumbar discectomy History of radical prostatectomy for prostate cancer Status post cervical spinal arthrodesis Status post lumbar laminectomy Family History Mother No problems noted. Father Leiomyosarcoma Sister Hyperlipidemia Grandfather No problems noted. Grandfather No problems noted. Grandmother No problems noted. Grandmother No problems noted. Maternal Aunt Personal history of malignant neoplasm COLON Son No problems noted. Son No problems noted. Social History Smoking/Tobacco Use Status: Never Smoking risk assessment performed?: Yes Alcohol Intake: former Drug use: Never Substance use type: does not use Housing: house Do you feel safe at home: Yes Do you feel safe in your relationship?: Yes Meds Allergies and Home Medications Allergies Allergy/AdvReac Type Severity Reaction Status Date / Time brimonidine tartrate Allergy Intermediate eye Verified 06/08/20 10:56 [From Combigan] irritation,rash buspirone Allergy Intermediate Verified 06/08/20 10:56 shellfish derived Allergy Intermediate Swelling/Ed Verified 06/08/20 10:56 earnest timolol maleate Allergy Intermediate eye Verified 06/08/20 10:56 [From Combigan] irritation,rash hydrocodone Allergy Verified 06/08/20 10:56 codeine AdvReac Intermediate Nausea Verified 06/08/20 10:56 ibuprofen [From Advil] AdvReac Intermediate Nausea Verified 06/08/20 10:56 naproxen sodium [From Aleve] AdvReac Intermediate Nausea Verified 06/08/20 10:56 indomethacin [From Indocin] AdvReac Mild Diarrhea Verified 06/08/20 10:56 Home Medications Medication Instructions Recorded Confirmed Type dorzolamide 1 drp OS BID drp NS 05/09/12 06/08/20 History latanoprost 1 drp OU QPM drp NS 05/09/12 06/08/20 History vitamin B complex 1 tab PO DAILY 07/28/18 06/08/20 History aspirin 81 mg tablet,delayed 81 mg PO DAILY #90 tab 08/22/18 06/08/20 Rx release timolol maleate 0.5 % eye drops 1 drp OP BID 08/22/18 06/08/20 History acetaminophen 650 mg PO Q4H PRN PRN 06/08/20 06/08/20 History cholecalciferol (vitamin D3) 25 mcg PO DAILY 06/08/20 06/08/20 History escitalopram oxalate 5 mg PO DAILY 06/08/20 06/08/20 History quetiapine [Seroquel] 12.5 mg PO BID PRN 06/08/20 06/08/20 History Exam Narrative Exam Narrative: Elderly Micronesian male lying in bed in semi-John position; alert, oriented to person, place, circumstances and superficially to time (he knows that it is 2020 but unable to state the correct month) HEENT: remarkable for poor dentition; mucosa is moist, no exudates; full EOMI, hearing is slightly impaired, no visible hematoma over head; no scalp laceration Neck: supple, no JVD, normal carotid pulses, no bruits, no thyromegaly, no LN Heart: bradycardic but regular; soft systolic murmur over apex. no gallop or rub Abdomen: scaphoid, soft, normal bowel sounds; no bruits, no organomegaly Extremities: muscle wasting about his hands, arms; legs and feet w/out edema or cyanosis; diminished pedal pulses, feet are cool Neuro: alert and oriented as noted above; no facial asymmetry, normal movement of palate and tongue; normal facial mimetic muscle movement; grossly intact vision to confrontation, EOMI. fundi not examined. normal ROM; generalized weakness in hands/arms/legs but no focal paresis; sensory grossly intact Genitalia and rectal exam deferred. Skin: no open sores over arms/legs Results Imaging CT scan - chest: report reviewed and image reviewed EKG: image reviewed Labs Result diagrams: 06/09/20 06:15 06/09/20 06:15 Labs: Laboratory Results - last 24 hr 06/08/20 06/08/20 06/08/20 11:30 11:30 11:30 WBC 5.99 RBC 3.87 L Hgb 13.3 L Hct 40.5 MCV 104.7 H MCH 34.4 H MCHC 32.8 RDW 13.9 Plt Count 333 MPV 8.8 Immature Gran % 0.7 Neutrophils % 75.2 Lymphocytes % 14.2 Monocytes % 9.0 Eosinophils % 0.7 Basophils % 0.2 Nucleated RBC % 0 Absolute Neutrophils 4.51 Absolute Lymphocytes 0.85 L Absolute Monocytes 0.54 Absolute Eosinophils 0.04 Absolute Basophils 0.01 PT 10.4 INR 1.0 APTT 18.7 L Sodium 144 Potassium 4.9 Chloride 107 Carbon Dioxide 29.4 Anion Gap 7.6 BUN 32 H Creatinine 0.8 Estimated GFR/1.73 m2 >= 60.00 Glucose 151 H Calcium 9.4 Magnesium 2.2 Total Bilirubin 0.6 AST 25 ALT 16 Alkaline Phosphatase 102 Troponin I < 0.05 Total Protein 7.2 Albumin 2.8 L Urine Color Urine Clarity Urine pH Ur Specific Babcock Urine Protein Urine Ketones Urine Blood Urine Nitrite Urine Bilirubin Urine Urobilinogen Ur Leukocyte Esterase Urine RBC Urine WBC Ur Epithelial Cells Urine Crystals Urine Bacteria Urine Casts Urine Mucus Urine Other Ur Culture Indicated? Urine Glucose COVID-19 Source 06/08/20 06/08/20 13:50 14:35 WBC RBC Hgb Hct MCV MCH MCHC RDW Plt Count MPV Immature Gran % Neutrophils % Lymphocytes % Monocytes % Eosinophils % Basophils % Nucleated RBC % Absolute Neutrophils Absolute Lymphocytes Absolute Monocytes Absolute Eosinophils Absolute Basophils PT INR APTT Sodium Potassium Chloride Carbon Dioxide Anion Gap BUN Creatinine Estimated GFR/1.73 m2 Glucose Calcium Magnesium Total Bilirubin AST ALT Alkaline Phosphatase Troponin I Total Protein Albumin Urine Color Yellow Urine Clarity Clear Urine pH 6.0 Ur Specific Babcock 1.020 Urine Protein Negative Urine Ketones 15 H Urine Blood Moderate H Urine Nitrite Negative Urine Bilirubin Negative Urine Urobilinogen 1.0 H Ur Leukocyte Esterase Negative Urine RBC Urine WBC 5-10 Ur Epithelial Cells Rare Urine Crystals Many calcium oxalate Urine Bacteria Few Urine Casts Negative Urine Mucus Heavy Urine Other Few renal Ur Culture Indicated? Yes Urine Glucose Negative COVID-19 Source Nasal/nares Last Vital Signs Temp 36.1 C L 06/08/20 15:50 Pulse 52 L 06/08/20 15:50 Resp 22 06/08/20 15:50 BP 142/73 H 06/08/20 15:50 Pulse Ox 94 06/08/20 15:50 COVID-19 Screening Have you, or household traveled for leisure in last 14 days?: No Had IN PERSON contact w/suspected or confirmed C-19 person: No
[2020-06-08] MEDS: Normal Saline 1,000 ML 85 ML IV (17:36)
[2020-06-08] MEDS: Pantoprazole 40 MG TABCR PO (21:51)
[2020-06-08 23:03] LABS: COVID-19 PCR Negative (Negative)
[2020-06-09] VITALS (7 sets, daily range): BP systolic 109–166; BP diastolic 60–81; PULSE 47–55; RESP 16–22; TEMP 35.6–36.5; O2SAT 95–98
[2020-06-09] MEDS: Enoxaparin 60 MG/0.6 ML SYR 50 MG SC ×2 (00:29→11:56)
[2020-06-09 06:49] LABS: Abs Immature Grans 0.01 10^3/uL (0.0-0.06); Absolute Basophil Count 0.02 10^3/uL (0.0-0.2); Absolute Eosinophil Count 0.06 10^3/uL (0.0-0.7); Absolute Lymphocyte Count 1.18 10^3/uL (1.2-3.4); Absolute Monocyte Count 0.57 10^3/uL (0.1-0.8); Absolute Neutrophil Count 2.64 10^3/uL (1.2-6.7); Basophils % 0.4; Eosinophils % 1.3; HCT 35.4 % (40.0-50.0); HGB 11.8 g/dL (13.5-17.5); Immature Grans % 0.2; Lymphocytes % 26.3; MCH 34.1 pg (27.0-33.0); MCHC 33.3 % (32.0-36.0); MCV 102.3 fL (80-95); MPV 8.9 fL (8.0-11.0); Monocytes % 12.7; Neutrophils % 59.1; Nucleated RBC 0 %; Platelet Count 295 10^3/uL (130-400); RBC 3.46 10^6/uL (4.36-5.78); RDW 14.2 % (11.8-14.1); RDW-SD 53.2 fL; WBC 4.48 10^3/uL (4.4-10.8)
[2020-06-09 07:01] LABS: BUN 28 mg/dL (7-18); CREATININE 0.6 mg/dL (0.70-1.30); Calcium 8.6 mg/dL (8.5-10.1); Chloride 110 mmol/L (98-107); Sodium 145 mmol/L (136-145)
[2020-06-09 07:08] LABS: Glucose 99 mg/dL (74-106); Potassium 3.6 mmol/L (3.5-5.1)
--- NOTE | 2020-06-09 08:43 | INITIAL_ITS ---
- If Service Date Differs Date of service: 06/09/20 Time of Service: 08:43 Care Management Initial Assess REASON FOR HOSPITALIZATION:: Pulmonary embolism. PAST MEDICAL HISTORY/PAST SURGICAL HISTORY:: Medical History: Anxiety - followed at [facility], Arthritis of right wrist - severe STT arthritis, Asthma, Chronic left maxillary sinusitis - 01/05/[address] Vieyra, Depression, Deviated nasal septum, Glaucoma, Lumbago - discectomy, Macrocytosis, Polyp of colon - MIRZA STROUD; TUBULAR ADENOMA, Pulmonary hypertension, Rectal/anal stenosis, TIA (transient ischemic attack) - Is not clear if this is a TIA or some other neurologic episodes such as a seizure. It could have also been brought about by cardiac dysrhythmia and will get a Holter regarding this. He needs a carotid ultrasound to rule out carotid disease. We will follow-up with him soon, Tricuspid valve regurgitation, secondary - Pulmonary hypertension and tricuspid regurg are likely linked. His anxiety is preventing him for from getting further investigation right now. He also is basically asymptomatic. We will try to work on this when he returns in the fall, and Urge incontinence. Surgical History: CERVICAL SPINE FUSING - 07/2013; C3-C4 WITH CADAVER BONE AND S ECURING WITH TITANIUM PLATE, Colonoscopy - IV Sedation (05/16/12) - DR. MIRZA CESPEDES (TUBULAR ADENOMA), Extraction of cataract - [facility]-06/12/14 RIGHT EYE; S/P LEFT 05/22/14,. History of cataract removal with insertion of prosthetic lens, History of lumbar discectomy, History of radical prostatectomy - for prostate cancer,. Status post cervical spinal arthrodesis, and Status post lumbar laminectomy. PREVIOUS FUNCTIONAL STATUS/SOCIAL/FAMILY SUPPORTS:: Farhad is an 85 year old man who has been residing at [facility] since being hospitalized at [facility]. Prior to his hospitalization, he resided with his , Ivelisse, in [place], [place]. Farhad and Ivelisse have two sons, Jordan ([phone]. [phone]), who lives locally, and Tate, who lives in [place], [place]. 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 Farhad's hobbies consist of photography, swimming, and running. CURRENT FUNCTIONAL STATUS:: Farhad is asleep when CM comes to meet with him. CM telephones his , Ivelisse, who provides information for the initial assessment. ADVANCE DIRECTIVES:: DPOA for Medical Decisions on file; Ivelisse Ceja is appointed as agent. Has patient been provided with info about the portal/API?: No Did the patient sign up for the portal?: No CODE STATUS:: DNR/DNI INSURANCE COVERAGE / FINANCIAL ISSUES:: AARP and Medicare. CURRENT HOME/COMMUNITY SERVICES/EQUIPMENT:: No home/community services or medical equipment. PRIMARY CARE PHYSICIAN:: Jaclyn Cantu. POTENTIAL DISCHARGE NEEDS:: Follow up appointment with PCP and discharge plan of care. PATIENT/FAMILY EDUCATION NEEDS:: Discharge instructions, limitations, follow up plan of care, including Ask Me Three and self management. ANTICIPATED BARRIERS TO DISCHARGE:: Farhad is currently on Comfort Measures only. TRANSPORTATION:: TBD based on disposition. PLAN:: Farhad is currently on VISITOR SERVICES COORDINATOR status. Plan remains to be determined.
[2020-06-09] MEDS: Cholecalciferol (Vitamin D3) 1,000 UNIT TAB 1000 UNITS PO (08:56)
[2020-06-09] MEDS: Escitalopram 10 MG TAB 5 MG PO (08:56)
[2020-06-09] MEDS: Vitamins B Comp w/C TAB 1 TAB PO (08:56)
[2020-06-09] MEDS: Pantoprazole 40 MG TABCR PO (08:56)
[2020-06-09] MEDS: Dorzolamide 2% 10 ML BTL OS (09:03)
[2020-06-09] MEDS: Timolol 0.5% 5 ML BTL OP (09:05)
--- NOTE | 2020-06-09 12:30 | RT.EKG_ITS ---
APPROVED REPORT Exam: Resting ECG Patient Location: I HR:53 bpm ECG Measurements Heart Rate 53 AXIS MA 164 P 102 QRSd 101 QRS 21 QT 486 T 26 QTc 458 Conclusion Bradycardia with irregular rate...V-rate 45- 98, mean < 60 Anteroseptal infarct, age indeterminate...Q >35mS, T neg, V1-V2 APBs
--- NOTE | 2020-06-09 13:22 | IN_ITS ---
Date of service: 06/09/20 Time of Service: 11:30 PT Notes Visit Reasons: PULMONARY EMBOLISM Inpatient Physical Therapy Evaluation Date: May Referring Doctor: Jaden Cartwright PT Orders: PT CONSULT: Limited ability Precautions: Standard, Fall Patient Profile/Admitting Diagnosis: Farhad is a 85-year-old Persian male who is a resident at [facility] after recent hospitalization at [facility]. Patient has history of chronic generalized weakness and gait instability and frequent falls. He had an unwitnessed fall which he says that he blacked out. Found to have a pulmonary emboli, admitted PMHX: (Updated 06/08/20 @ 20:00 by Jaden Cartwright) Anxiety followed at [facility] Arthritis of right wrist severe T arthritis Asthma Chronic left maxillary sinusitis 01/05/[address] Vieyra Depression (08/28/15) Deviated nasal septum Glaucoma Lumbago discectomy Macrocytosis (01/25/14) Polyp of colon (05/18/12) MIRZA STROUD; tUBULAR ADENOMA Pulmonary hypertension Rectal/anal stenosis TIA (transient ischemic attack) Is not clear if this is a TIA or some other neurologic episodes such as a seizure. It could have also been brought about by cardiac dysrhythmia and will get a Holter regarding this. He needs a carotid ultrasound to rule out carotid disease. We will follow-up with him soon . Tricuspid valve regurgitation, secondary Pulmonary hypertension and tricuspid regurg are likely linked. His anxiety is preventing him for from getting further investigation right now. He also is basically asymptomatic. We will try to work on this when he returns in the fall. Urge incontinence Surgical History CERVICAL SPINE FUSING 07/2013; C3-C4 WITH CADAVER BONE AND SECURING WITH TITANIUM PLATE Colonoscopy - IV Sedation (05/16/12) DR. MIRZA CESPEDES (TUBULAR ADENOMA) Extraction of cataract (06/12/14) [facility]-06/12/14 RIGHT EYE; S/P LEFT 05/22/14 History of cataract removal with insertion of prosthetic lens History of lumbar discectomy History of radical prostatectomy for prostate cancer Status post cervical spinal arthrodesis Status post lumbar laminectomy Social History/Home Situation: Currently resides at [facility] Current Functional Limitations: Altered mental status, decreased mobility, and transfers Subjective: Farhad was lying in bed worried he was not going to make it to the bathroom prior to having an accident. Requests to get up to go to the bathroom. Objective: General Observation: Altered mental status, Sleepy Mental Status: Alert to person. Pain: Was unable to give me an answer in regards to pain Vital Signs: seated BP 155/78 mmHg; Standing BP 166/79 mmHg ROM: Right Upper Extremity: WFL AA ROM, unable to follow command to assess active mobility Left Upper Extremity: WFL AA ROM, unable to follow command to assess active mobility Right Lower Extremity: WFL AA ROM, unable to follow command to assess active mobility Left Lower Extremity: WFL AA ROM, unable to follow command to assess active mobility Strength: Patient was unable to follow command for strength assessment to be completed Bed Mobility/Transfers: Sidelying-sit: Vladimir Sit-stand: Vladimir x2 with use of FWW Bed-commode: Vladimir x2 with use of FWW Stand-sit: Vladimir with cueing for hand placement Gait: Utilize front wheeled walker min assist x2 ambulating from bed to toilet 25 ft x2 with decreased lanie decreased step height and stride length Balance: Static Sitting: Good Dynamic Sitting: Good Static Standing: Fair Dynamic Standing: Fair Special Tests: Mobility Limitations Standardized Measure [facility] AM-PAC 6 clicks Basic Mobility Inpatient Short Form: Raw Score: 18 Standardized Score: 46% Informed Consent/Education: Patient instructed in purpose of PT consult and plan of care. Assessment: Patient is a 85 year old male referred to physical therapy services with the diagnosis of syncopal episode with closed head injury, pulmonary emboli. Patient presents with clinical signs and symptoms consistent with diagnosis, as demonstrated by the following impairment level findings: Increase functional ability decreased functional transfers and ability to follow commands for active mobility with decreased mental status. Impairments are contributing to the following functional limitations: Inability to transfer independently, inability to ambulate independently, global deconditioning. Patient is assessed as a Moderate [id number] complexity based on the following: History: As above Examination: As above Presentation: Evolving Decision Making: Moderate Goals: Goals X1 week 1. Supine-Sit supervision 2. Sit-Supine supervision 3. Sit-Stand supervision 4. Stand-Sit supervision 5. Bed-Chair supervision with front wheeled walker 6. Chair-Bed supervision with front wheeled walker 7. Gait supervision with front wheeled walker 50 feet or greater Plan of Care/Treatment Plan: 1-2x/day, 7 days/week x 1 week. Plan of care has been reviewed with the [facility] providing the service under Physical Therapy direction. Initiate Physical Therapy intervention for strengthening, bed mobility, transfers, gait, stairs, balance training, use of assistive device. DISCHARGE RECOMMENDATIONS: Return to [facility] once medically cleared TREATMENT CODE/TIME: 00701, IE 11:30 EDNA Young [facility] Disclaimer: This note was created using KBLE voice recognition software. It was reviewed for major content. However, there may be multiple small discrepancies and errors due to the voice recognition aspects of the software.
--- NOTE | 2020-06-09 14:11 | PGE_ITS ---
Date of Service Date of service: 06/09/20 Time of Service: 14:11 Assessment and Plan Assessment and plan (1) Pulmonary embolism: Status: Acute Assessment and plan: Saddle embolus involving right lower lobe and right middle lobe pulmonary arteries. Patient has been on treatment w/ lovenox 50 mg SC Q12h however we are discontinuing all treatment per the patients wishes. Patient will be given dilaudid prn for any pain or dyspnea and phenergan prn nausea and lorazepam prn for anxiety. Scopolamine and glycopyrolate have been ordered prn for anti-sialogogue. Qualifiers: Pulmonary embolism type: saddle Chronicity: acute Acute cor pulmonale presence: with acute cor pulmonale Qualified Code(s): I26.02 - Saddle embolus of pulmonary artery with acute cor pulmonale (2) Closed head injury: Status: Acute Assessment and plan: No acute intracranial injury nor cervical injury was noted on CT scans of head and neck. Qualifiers: Encounter type: initial encounter Qualified Code(s): S09.90XA - Unspecified injury of head, initial encounter (3) Syncope: Status: Acute Assessment and plan: presumably d/t his submassive PE Qualifiers: Syncope type: unspecified Qualified Code(s): R55 - Syncope and collapse (4) Abnormal chest CT: Status: Acute Assessment and plan: No further evaluation indicated at this time. (5) Comfort measures only status: Status: Acute Assessment and plan: comfort meds have been ordered by Wendy Giraldo NP. I concur with her treatment. We did have a discussion regarding use of continuous morphine pump however the patient is not in any pain nor having any dyspnea. At this time I can not support use of continuous narcotic drip however, I have ordered iv dilaudid to be used prn pain or dyspnea. Subjective Subjective Interval history since last seen: Patient is indicated that he has given up the will to live. He requests that no further testing or treatment be done other than that which would keep him comfortable. Wendy Giraldo NP, saw him in my absence while I was attending to another patient. I had asked her to see him as nursing was concerned that he was in a Mobitz type II 2nd degree AV block. I reviewed his rhythm strips and EKG and the patient is in a sinus bradycardia to SR but not AV block. Nevertheless, I met w/ the patient twice, once along and again after his family was present ( Ivelisse and son Jordan). Farhad seems to be of sound mind. He understands the seriousness of his condition (submassive PE i nvolving the RLL, RML) and the likelihood of further PE's and extension of his current PE if not properly treated. He understands that he will likely if this is not treated. Both his and his son support his decision to withold further treatment other than that which would make him comfortable. 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 Prn meds have been ordered to treat any pain, dyspnea, nausea or excess secretions. He has been taken off telemetry. Exam Narrative Exam Narrative: Elderly Turkmen male who is alert and oriented to person, place and circumstances. Speech is soft but intelligible w/ some stuttering. Lungs are clear Heart is regular but bradycardic. Abdomen is scaphoid, soft and nontender. Objective Last Vital Signs Temp 36.5 C 06/09/20 12:35 Pulse 50 L 06/09/20 13:30 Resp 17 06/09/20 12:35 BP 109/60 06/09/20 12:35 Pulse Ox 97 06/09/20 12:35 Laboratory Results - last 24 hr 06/08/20 06/08/20 06/09/20 13:50 14:35 06:15 WBC RBC Hgb Hct MCV MCH MCHC RDW Plt Count MPV Immature Gran % Neutrophils % Lymphocytes % Monocytes % Eosinophils % Basophils % Nucleated RBC % Absolute Neutrophils Absolute Lymphocytes Absolute Monocytes Absolute Eosinophils Absolute Basophils Sodium 145 Potassium 3.6 D Chloride 110 H Carbon Dioxide 25.0 Anion Gap 10.0 BUN 28 H Creatinine 0.6 L Estimated GFR/1.73 m2 >= 60.00 Glucose 99 D Calcium 8.6 Urine Color Yellow Urine Clarity Clear Urine pH 6.0 Ur Specific [place] 1.020 Urine Protein Negative Urine Ketones 15 H Urine Blood Moderate H Urine Nitrite Negative Urine Bilirubin Negative Urine Urobilinogen 1.0 H Ur Leukocyte Esterase Negative Urine RBC Urine WBC 5-10 Ur Epithelial Cells Rare Urine Crystals Many calcium oxalate Urine Bacteria Few Urine Casts Negative Urine Mucus Heavy Urine Other Few renal Ur Culture Indicated? Yes Urine Glucose Negative COVID-19 Source Nasal/nares SARS-CoV-2 (PCR) Negative 06/09/20 06:15 WBC 4.48 RBC 3.46 L Hgb 11.8 L Hct 35.4 L MCV 102.3 H MCH 34.1 H MCHC 33.3 RDW 14.2 H Plt Count 295 MPV 8.9 Immature Gran % 0.2 Neutrophils % 59.1 Lymphocytes % 26.3 Monocytes % 12.7 Eosinophils % 1.3 Basophils % 0.4 Nucleated RBC % 0 Absolute Neutrophils 2.64 Absolute Lymphocytes 1.18 L Absolute Monocytes 0.57 Absolute Eosinophils 0.06 Absolute Basophils 0.02 Sodium Potassium Chloride Carbon Dioxide Anion Gap BUN Creatinine Estimated GFR/1.73 m2 Glucose Calcium Urine Color Urine Clarity Urine pH Ur Specific [place] Urine Protein Urine Ketones Urine Blood Urine Nitrite Urine Bilirubin Urine Urobilinogen Ur Leukocyte Esterase Urine RBC Urine WBC Ur Epithelial Cells Urine Crystals Urine Bacteria Urine Casts Urine Mucus Urine Other Ur Culture Indicated? Urine Glucose COVID-19 Source SARS-CoV-2 (PCR)
[2020-06-09] MEDS: Scopolamine 1 MG/3 DAYS PATCH TD (14:40)
[2020-06-09] MEDS: LORazepam 2 MG/ML VIAL IV/SC (21:03)
[2020-06-09] MEDS: Latanoprost 0.005% 2.5 ML BTL OU (21:03)
[2020-06-09] MEDS: Normal Saline Flush 10 ML SYR IVP (21:04)
--- NOTE | 2020-06-10 09:11 | INDS_ITS ---
Date of service: 06/10/20 Time of Service: 09:11 PT Notes Visit Reasons: PULMONARY EMBOLISM Physical Therapy Inpatient Discharge Summary Date: May Date of service: 06/09/2020 only This is a clinical summary of care provided on the duration of dates listed above. No charge was made in the completion of this documentation. Referring Doctor: Jaden Cartwright PT Orders: PT CONSULT: Limited ability Precautions: Standard, Fall Patient Profile/Admitting Diagnosis: Farhad is a 85-year-old Chinese male who is a resident at [facility] after recent hospitalization at [facility]. Patient has history of chronic generalized weakness and gait instability and frequent falls. He had an unwitnessed fall which he says that he blacked out. 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 Vieyra Depression (08/28/15) Deviated nasal septum Glaucoma Lumbago discectomy Macrocytosis (01/25/14) Polyp of colon (05/18/12) MIRZA STROUD; tUBULAR ADENOMA Pulmonary hypertension Rectal/anal stenosis TIA (transient ischemic attack) Is not clear if this is a TIA or some other neurologic episodes such as a seizure. It could have also been brought about by cardiac dysrhythmia and will get a Holter regarding this. He needs a carotid ultrasound to rule out carotid disease. We will follow-up with him soon . Tricuspid valve regurgitation, secondary Pulmonary hypertension and tricuspid regurg are likely linked. His anxiety is preventing him for from getting further investigation right now. He also is basically asymptomatic. We will try to work on this when he returns in the fall. Urge incontinence Surgical History CERVICAL SPINE FUSING 07/2013; C3-C4 WITH CADAVER BONE AND SECURING WITH TITANIUM PLATE Colonoscopy - IV Sedation (05/16/12) DR. MIRZA CESPEDES (TUBULAR ADENOMA) Extraction of cataract (06/12/14) [facility]-06/12/14 RIGHT EYE; S/P LEFT 05/22/14 History of cataract removal with insertion of prosthetic lens History of lumbar discectomy History of radical prostatectomy for prostate cancer Status post cervical spinal arthrodesis Status post lumbar laminectomy Social History/Home Situation: Currently resides at [facility] Current Functional Limitations: Altered mental status, decreased mobility, and transfers Subjective: NT. See most recent SENIOR ELECTRONICS DESIGN ENGINEER notes. Objective: General Observation: NT. See most recent SENIOR ELECTRONICS DESIGN ENGINEER notes. Mental Status: NT. See most recent SENIOR ELECTRONICS DESIGN ENGINEER notes. Pain: NT. See most recent SENIOR ELECTRONICS DESIGN ENGINEER notes. Vital Signs: NT. See most recent SENIOR ELECTRONICS DESIGN ENGINEER notes. ROM: Right Upper Extremity: WFL AA ROM, unable to follow command to assess active mobility Left Upper Extremity: WFL AA ROM, unable to follow command to assess active mobility Right Lower Extremity: WFL AA ROM, unable to follow command to assess active mobility Left Lower Extremity: WFL AA ROM, unable to follow command to assess active mobility Strength: Patient was unable to follow command for strength assessment to be completed Bed Mobility/Transfers: Sidelying-sit: Vladimir Sit-stand: Vladimir x2 with use of FWW Bed-commode: Vladimir x2 with use of FWW Stand-sit: Vladimir with cueing for hand placement Gait: Utilize front wheeled walker min assist x2 ambulating from bed to toilet 25 ft x2 with decreased lanie decreased step height and stride length Balance: Static Sitting: Good Dynamic Sitting: Good Static Standing: Fair Dynamic Standing: Fair Assessment: Patient is a 85 year old male referred to physical therapy services with the diagnosis of syncopal episode with closed head injury, pulmonary emboli. Patient presents with clinical signs and symptoms consistent with diagnosis, as demonstrated by the following impairment level findings: Increase functional ability decreased functional transfers and ability to follow commands for active mobility with decreased mental status. Impairments are contributing to the following functional limitations: Inability to transfer independently, inability to ambulate independently, global deconditioning. Goals: Goals X1 week 1. Supine-Sit supervision NOT MET 2. Sit-Supine supervision NOT MET 3. Sit-Stand supervision NOT MET 4. Stand-Sit supervision NOT MET 5. Bed-Chair supervision with front wheeled walker NOT MET 6. Chair-Bed supervision with front wheeled walker NOT MET 7. Gait supervision with front wheeled walker 50 feet or greater NOT MET DISCHARGE RECOMMENDATIONS: Return to [facility] once medically cleared. TREATMENT CODE/TIME: [facility] Thank you for the opportunity to participate in the care of this patient. Tressa Escobedo PT, DPT, CLT [facility], [place]
--- NOTE | 2020-06-10 12:56 | NS.NUTBLAN_ITS ---
Date of service: 06/10/20 Time of Service: 12:56 Nutritional Consult ASSESSMENT: 85 year old male admitted with PE, syncope with hx of TIA, HTN. Currently on SHELVING SUPERVISOR, Allergic to shellfish. Following Regular moist and minced meal plan with poor intake. Nursing requesting Ensure TID for supplementation- will provide. BMI indicates underweight status, weight loss of 30 lbs noted in last 6 months indicative of severe malnutrition. Estimated Needs: [id number] kcal, 55-65 g protein, 1800 ml fluid At high risk of functional decline and skin breakdown. NUTRITIONAL DIAGNOSIS: Severe Malnutrition in view of low BMI and significant weight loss in last 6 months due to decrease in PO intake. INTERVENTION: Will provide meal preferences and supplement po intake with ensure or as desired. MONITORING AND EVALUATION: continue current meal plan supplement with ensure or as pt requests for optimal nutrient intake. will continue to follow Time Spent in Nutritional Counseling and Treatment: 10
--- NOTE | 2020-06-10 14:12 | CHAPLAIN ---
Farhad was resting in bed when I visited. He said he might keep his eyes closed part of the time. 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 I offered Farhad a prayer shawl, but he asked me to give it to someone else, as it might get lost if he gets it. Llamas came from [facility] and will be taking with Palliative and Hospice about next steps. Farhad was not totally comfortable he said, and said he would tell his nurse.
--- NOTE | 2020-06-10 16:18 | PDOC.CMPRO ---
Care Management Progress Note S/O: Farhad was lying in bed, sleeping when CM attempted to meet with him. CM spoke with his , and provided education central to insurance limitations, medical necessity, hospice options including SNF, hospice houses and different levels of end of life care. CM continues to follow. A: 85 year old P: Anticipate Farhad will return back to [facility] when ready per MD for skilled end of life care. His would like him to remain at [facility] if his is imminent; CM agreed to discuss with MD and provided patient education at length. CM continues to follow.
[2020-06-10] MEDS: Senna TAB 1 TAB PO (17:24)
[2020-06-10] MEDS: Bisacodyl 10 MG SUPP PR (17:24)
[2020-06-10] MEDS: Magnesium Citrate 300 ML BTL PO (17:24)
--- NOTE | 2020-06-10 18:44 | PGE_ITS ---
Date of Service Date of service: 06/10/20 Time of Service: 18:44 Assessment and Plan Assessment and plan (1) Constipation: Status: Chronic Assessment and plan: Patient has been given a dose of magnesium citrate and underwent digital rectal disimpaction along with Dulcolax suppository. We will try some enemas tonight and he will remain on scheduled doses of stool softeners and laxatives. Qualifiers: Constipation type: slow transit constipation Qualified Code(s): K59.01 - Slow transit constipation (2) Pulmonary embolism: Status: Acute Assessment and plan: Saddle embolus involving right lower lobe and right middle lobe pulmonary arteries. Patient declines any further treatment or work- up in his family is supportive in his decision. 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 I expect transfer back to the half-way in the morning if he does not from his pulmonary embolus. Subjective Subjective Interval history since last seen: Patient is very constipated this afternoon. He had been constipated on admission but got relief w/ laxatives and stool soft eners. However when he went on comfort care measures his GI meds were not reordered. Exam Narrative Exam Narrative: Elderly gentleman male lying in bed with his eyes shut. He does open his eyes and answer me and denies any chest pain or shortness of breath but does have abdominal discomfort. Lungs are clear to auscultation Heart regular rate and rhythm Abdomen scaphoid nondistended but with some voluntary guarding and tenderness periumbilically Objective Last Vital Signs Temp 36.5 C 06/09/20 12:35 Pulse 50 L 06/09/20 21:08 Resp 17 06/09/20 12:35 BP 109/60 06/09/20 12:35 Pulse Ox 97 06/09/20 12:35
[2020-06-10] MEDS: Methylnaltrexone 12 MG/0.6 ML VIAL SC (21:03)
[2020-06-10] MEDS: LORazepam 2 MG/ML VIAL IV/SC (21:03)
[2020-06-10] MEDS: Latanoprost 0.005% 2.5 ML BTL OU (21:03)
[2020-06-10] MEDS: Normal Saline Flush 10 ML SYR IVP (21:03)
[2020-06-11] MEDS: Glycopyrrolate 0.2 MG/1 ML VIAL IVP (00:02)
[2020-06-11] MEDS: Normal Saline Flush 10 ML SYR IVP ×3 (00:02→21:44)
[2020-06-11] MEDS: LORazepam 2 MG/ML VIAL IV/SC ×2 (00:02→21:43)
[2020-06-11] MEDS: HYDROmorphone 2 MG/ML VIAL IVP (06:48)
--- NOTE | 2020-06-11 10:37 | SPP_ITS ---
Date of Service June 11, 2020 Subjective BICYCLE II ASSEMBLER consult order received 06/10/20 and communicated to covering BICYCLE II ASSEMBLER for Wednesday06/11/20. Covering BICYCLE II ASSEMBLER contacted nursing this morning and was informed that this order was cancelled due to pt on comfort measures only at this time. No evaluation requested. NO CHARGE Coding
--- NOTE | 2020-06-11 10:37 | AMB.SPSTP ---
Date of Service June 11, 2020 Subjective REHABILITATION TECH consult order received 06/10/20 and communicated to covering REHABILITATION TECH for Wednesday06/11/20. Covering REHABILITATION TECH contacted nursing this morning and was informed that this order was cancelled due to pt on comfort measures only at this time. No evaluation requested. NO CHARGE Coding
--- NOTE | 2020-06-11 16:50 | CMPROGNOTE_ITS ---
Care Management Progress Note S/O: Farhad was lying in bed, sleeping when CM attempted to meet with him. CM spoke with his , and reviewed MD discussion central to disposition. Farhad will be offered to stay at [facility] for end of life care per CM discussions with , JORGE and Ivelisse. Ivelisse wept, and provided thanks for the option, as Farhad would have to quarantine when returning to SNF which would drastically limit patient family interaction while on comfort care. CM reviewed with Ivelisse the need to revisit conversation in one weeks time, if needed. CM continues to follow. A: 85 year old P: Farhad will enter SWB1 at [facility] for skilled end of life care. His would like him to remain at [facility] if his is imminent; CM agreed to discuss with MD and provided patient education at length, he will be offered SWB1 for 7-10 days at this time to be revisited, if needed. Anticipate he will enter SWB1 as soon as tomorrow. CM continues to follow.
--- NOTE | 2020-06-11 17:05 | W.PM.PROGNOT ---
Date of Service Date of service: 06/11/20 Time of Service: 17:05 Assessment and Plan Assessment and plan (1) Comfort measures only status: Status: Acute Assessment and plan: patient will remain here at [facility] until he dies. I expect his will be iminent in the next 48 to 72h as he has quit eating and drinking and he is now off his lovenox for his PE. I discussed his care w/ care transition coordinator and with the patient's son, Jordan. The family is grateful that he will remain here at [facility]. I will change his status to swing bed in the a.m. Subjective Subjective Interval history since last seen: Patient has been very sleepy today. Per nursing he has not required any narcotic analgesics. I believe that he is just shutting down now that he has given up and no longer wants any medical intervention. He is no longer eating. I have spoken w/ care transition coordinator, and rather than sending him back to [facility] where he would have to isolate/quarrantine for 14 days where his family would not be able to see him in person, I think that he should go into swing bed status for palliative care/terminal care. I do not anticipate that he will live for more than a day or two. Exam Narrative Exam Narrative: patient is somnolent but respirations are unlabored. he is sleeping w/ his mouth open and his mucous membranes appear to be dry. skin is taut, gaunt w/ muscle wasting. I did not awaken him to talk w/ him or to examine him as he appears to be comfortable. Objective Last Vital Signs Temp 36.5 C 06/09/20 12:35 Pulse 50 L 06/09/20 21:08 Resp 17 06/09/20 12:35 BP 109/60 06/09/20 12:35 Pulse Ox 97 06/09/20 12:35
[2020-06-12] MEDS: LORazepam 2 MG/ML VIAL IV/SC (09:17)
[2020-06-12] MEDS: Normal Saline Flush 10 ML SYR IVP ×2 (09:18→11:22)
--- NOTE | 2020-06-12 09:40 | CMPROGNOTE_ITS ---
Care Management Progress Note Farhad will enter SWB1 at [facility] for skilled end of life care. His would like him to remain at [facility] if his is imminent; CM agreed to discuss with MD and provided patient education at length, he will be offered SWB1 for 7-10 days at this time to be revisited, if needed. Anticipate he will enter SWB1 as soon as tomorrow. STEPHEN continues to follow.
[2020-06-12] MEDS: HYDROmorphone 2 MG/ML VIAL IVP (11:21)
--- NOTE | 2020-06-12 13:10 | W.PM.DS.N ---
Date of service: 06/12/20 Time of Service: 13:11 DS: Diagnosis Discharge Diagnosis (1) Comfort measures only status: Status: Acute Asessment and Plan: Patient was initially treated for pulmonary embolism after syncopal spell at [facility]. He was put on Lovenox 50 mg subcutaneously every 12 hours and the plan was to transition him over to a DOAC but patient indicated that he no longer wants any medical treatment and he expressed his desire to pass away. Family including his and son were able to visit with him while he was of sound mind and they supported in his decision. Comfort measures were ordered including analgesics and antianxiety and antiemetics but all other medications other than his glaucoma eyedrops were discontinued. Patient be discharged in the swing bed status with the expectation of his imminent demise now that he is no longer eating or drinking and no longer on anticoagulants for submassive PE. Discharge Plan Disposition Patient Disposition: [facility] SWING BED LEVEL 1 Condition: Poor Discharge Details Reason For Visit: PULMONARY EMBOLISM Admit Date/Time: 06/08/20 14:39 Admit Provider: Jaden Cartwright Attending Provider: Jaden Cartwright Primary Care Provider: [facility] Hospital Course: 85-year-old Singaporean male who is a resident of [facility] currently residing at [facility] after recent hospitalization at [facility]. Patient gives a history of chronic generalized weakness and gait instability and frequent falls which led to his hospitalization at [facility] and his subsequent stay at [facility]. On the day of admission patient had an unwitnessed fall at the long-term when he came to he says that he blacked out. This has been preceded by symptoms of dizziness but no chest pain or shortness of breath. Evaluation emergency department included a CTA of his chest that showed a saddle embolus at the junction of the right middle lobe and right lower lobe pulmonary arteries as well as some additional peripheral emboli in the same regions. There is suggestion of right ventricular strain on the CTA including right ventricular enlargement and slight concavity of the interventricular septum with significant reflux and to the hepatic veins. Patient was started on Lovenox at 50 mg subcutaneously every 12 hours and admitted to the medical/surgical floor for continued treatment of his pulmonary embolus as well as for cardiac monitoring for arrhythmias to explain his syncope. The plan was to transition him from Lovenox 1 mg/kg subcutaneously every 12 hours over to a DOAC and discharge him back to the long-term. In the interim I learned from the patient and his family that he had been declining for the last several months refusing to eat and the patient had been indicating his desire to not receive any further medical treatment. After a family meeting with the patient including his , Ivelisse, and his son, Jordan, the patient expressed his desire to stop all medical treatment other than comfort measures. 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 Patient continued to show signs of deterioration with refusing to eat or drink and was discussed among the hospitalist team and care managers that we would transition him into swing bed status in anticipation of his imminent rather than transferring him back to the long-term where he would have to go into 14-day quarantine as he is unvaccinated against COVID-19. Home Meds and New Rx's Prescriptions: Continued timolol maleate 0.5 % drops 1 drp OP BID RF: 0 latanoprost 2.5 ML drops 1 drp OU QPM RF: 0 dorzolamide 10 ML drops 1 drp OS BID RF: 0 acetaminophen 325 mg Tablet 650 mg PO Q4H PRN PRNRF: 0 Discontinued aspirin 81 mg tablet,delayed release (DR/EC) 81 mg PO DAILY Qty: 90 RF: 4 vitamin B complex [B Complex 1] tablet 1 tab PO DAILY RF: 0 cholecalciferol (vitamin D3) 25 mcg (1,000 unit) Capsule 25 mcg PO DAILY RF: 0 escitalopram oxalate 5 mg Tablet 5 mg PO DAILY RF: 0 quetiapine [Seroquel] 25 mg Tablet 12.5 mg PO BID PRN (Reason: depression) RF: 0 Discharge Instructions Instructions: Pulmonary Embolism (DC) Stand Alone Forms: Nursing Discharge Form Referrals: Jaclyn Cantu NP [Primary Care Provider] - Activity:: Activity as Tolerated Equipment/Supplies:: No Equipment Needed Diet:: As Tolerated Discharge Orders Discharge Orders: Discharge Order (Routine); Ordered 06/12/20 Ordered By: Jaden Cartwright DS: Summary Time Spent with Patient providing and/or coordinating discharge services: Less than 30 minutes Status at Discharge Functional status at discharge: bed bound Overall status at discharge: patient is not back to baseline Mental Status: mental status grossly normal Speech and Movement: speech and movement normal Mood: congruent mood Affect: normal affect Exam Psych Mental Status: mental status grossly normal Speech and Movement: speech and movement normal Mood: congruent mood Affect: normal affect DS: Data Vitals/I&O Vitals and I&O: Vital Signs Temperature 36.5 C 06/09/20 12:35 Temperature Source Temporal Artery Scan 06/09/20 12:35 Pulse 50 L 06/09/20 21:08 Pulse Rhythm Regular 06/09/20 16:57 Pulse 54 L 06/08/20 15:15 Respiratory Rate 17 06/09/20 12:35 Respiratory Effort 06/09/20 16:57 Respiratory Depth Normal 06/09/20 16:57 Respiratory Pattern Normal 06/09/20 16:57 Blood Pressure 109/60 06/09/20 12:35 Blood Pressure Mean 109 06/08/20 15:15 Blood Pressure Position Supine 06/08/20 10:56 Pulse Oximetry 97 06/09/20 12:35 Oxygen Delivery Method Room Air 06/09/20 12:35 Oxygen Flow Rate 0 06/09/20 12:35 Pain Level 8 06/12/20 11:21 Intake & Output 06/11/20 06/12/20 06/12/20 23:59 11:59 23:59 Intake Total 0 / 0 Balance 0 / 0 Intake: IV 10 10 Oral 0 / 0 Other: Urine Color Brown Comment MIXED WITH URINE WHICH WAS BROWN IN DIAPER AND BEDPAD R/T STOOL PT WAS ALSO INCONTINENT OF AT THIS TIME. 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 Vieyra Constipation Depression (08/28/15) Deviated nasal septum Glaucoma Lumbago discectomy Macrocytosis (01/25/14) Polyp of colon (05/18/12) MIRZA STROUD; tUBULAR ADENOMA Pulmonary hypertension Rectal/anal stenosis TIA (transient ischemic attack) Is not clear if this is a TIA or some other neurologic episodes such as a seizure. It could have also been brought about by cardiac dysrhythmia and will get a Holter regarding this. He needs a carotid ultrasound to rule out carotid disease. We will follow-up with him soon . Tricuspid valve regurgitation, secondary Pulmonary hypertension and tricuspid regurg are likely linked. His anxiety is preventing him for from getting further investigation right now. He also is basically asymptomatic. We will try to work on this when he returns in the fall. Urge incontinence Surgical History CERVICAL SPINE FUSING 07/2013; C3-C4 WITH CADAVER BONE AND SECURING WITH TITANIUM PLATE Colonoscopy - IV Sedation (05/16/12) DR. MIRZA CESPEDES (TUBULAR ADENOMA) Extraction of cataract (06/12/14) [facility]-06/12/14 RIGHT EYE; S/P LEFT 05/22/14 History of cataract removal with insertion of prosthetic lens History of lumbar discectomy History of radical prostatectomy for prostate cancer Status post cervical spinal arthrodesis Status post lumbar laminectomy Family History Mother No problems noted. Father Leiomyosarcoma Sister Hyperlipidemia Grandfather No problems noted. Grandfather No problems noted. Grandmother No problems noted. Grandmother No problems noted. Maternal Aunt Personal history of malignant neoplasm COLON Son No problems noted. Son No problems noted. Social History Smoking/Tobacco Use Status: Never Smoking risk assessment performed?: Yes Alcohol Intake: former Drug use: Never Substance use type: does not use Housing: house Do you feel safe at home: Yes Do you feel safe in your relationship?: Yes
== END 2020-06-12 13:23 | disposition swing bed (61) | DRG 175 ==
LOC: ER 14:45 → MS 15:39
PROVIDERS: Admitting Provider Internal Medicine; Emergency Provider Physician Assistant; PCP Nurse Practitioner; Visit Provider Internal Medicine
DX: I26.02 Saddle embolus of pulmonary artery with acute cor pulmonale (principal); E43 Unspecified severe protein-calorie malnutrition; H40.9 Unspecified glaucoma; Z51.5 Encounter for palliative care; W19.XXXA Unspecified fall, initial encounter; S09.8XXA Other specified injuries of head, initial encounter; R55 Syncope and collapse; Z66 Do not resuscitate; F41.9 Anxiety disorder, unspecified; J45.909 Unspecified asthma, uncomplicated; M19.031 Primary osteoarthritis, right wrist; D75.89 Other specified diseases of blood and blood-forming organs; F32.9 Major depressive disorder, single episode, unspecified; J32.0 Chronic maxillary sinusitis; M54.5 Low back pain; I27.20 Pulmonary hypertension, unspecified; I07.1 Rheumatic tricuspid insufficiency; N39.41 Urge incontinence; Z85.46 Personal history of malignant neoplasm of prostate; Z98.1 Arthrodesis status; M62.59 Muscle wasting and atrophy, not elsewhere classified, multiple sites; K59.01 Slow transit constipation
CPT/HCPCS: 36415; 71275; 80048; 80053; 87081; 87635; 93005; 96360; 96361; 96372; 97162; 99222; 99231; 99232; 99238; 99285; 70450; 71046; 72125; 72170; 81003; 81015; 83735; 84484; 85025; 85610; 85730; 87086; 93010; 93041; J1650; J2060

== ENCOUNTER 2020-06-12 13:23 | Inpatient (IN) | payer MEDICARE, SELFPAY ==
--- NOTE | 2020-06-12 13:25 | W.PM.HP.N ---
Date of service: 06/12/20 Time of Service: 13:25 Assessment and Plan Assessment and plan (1) Comfort measures only status: Status: Acute Assessment and plan: Continue current comfort care package including as needed use of analgesics, antiemetics, and anxiolytics. History of Present Illness History of Present Illness Chief Complaint: end of life care, PE Narrative: 85-year-old Kyrgy[place] male who is a resident of [facility] currently residing at [facility] after recent hospitalization at [facility]. Patient gives a history of chronic generalized weakness and gait instability and frequent falls which led to his hospitalization at [facility] and his subsequent stay at [facility]. On the day of admission patient had an unwitnessed fall [place] the [place] [facility] when he came to he says that he blacked out. This has been preceded by symptoms of dizziness but no chest pain or shortness of breath. Evaluation emergency department included a CTA of his chest that showed a saddle embolus at the junction of the right middle lobe and right lower lobe pulmonary arteries as well as some additional peripheral emboli in the same regions. There is suggestion of right ventricular strain on the CTA including right ventricular enlargement and slight concavity of the interventricular septum with significant reflux and to the hepatic veins. Patient was started on Lovenox at 50 mg subcutaneously every 12 hours and admitted to the medical/surgical floor for continued treatment of his pulmonary embolus as well as for cardiac monitoring for arrhythmias to explain his syncope. The plan was to transition him from Lovenox 1 mg/kg subcutaneously every 12 hours over to a DOAC and discharge him back to the [place] [facility]. In the interim I learned from the patient and his family that he had been declining for the last several months refusing to eat and the patient had been indicating his desire to not receive any further medical treatment. After a family meeting with the patient including his , Ivelisse, and his son, Jordan, the patient expressed his desire to stop all medical treatment other than comfort measures. 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 Patient continued to show signs of deterioration with refusing to eat or drink and was discussed among the hospitalist team and care managers that we would transition him into swing bed status in anticipation of his imminent rather than transferring him back to the [place] [facility] where he would have to go into 14-day quarantine as he is unvaccinated against COVID-19. Patient is now admitted to swing bed for continued comfort care while he is allowed to pass away. His is expected to be imminent in the next couple days. 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 Vieyra Constipation Depression (08/28/15) Deviated nasal septum Glaucoma Lumbago discectomy Macrocytosis (01/25/14) Polyp of colon (05/18/12) MIRZA STROUD; tUBULAR ADENOMA Pulmonary hypertension Rectal/anal stenosis TIA (transient ischemic attack) Is not clear if this is a TIA or some other neurologic episodes such as a seizure. It could have also been brought about by cardiac dysrhythmia and will get a Holter regarding this. He needs a carotid ultrasound to rule out carotid disease. We will follow-up with him soon . Tricuspid valve regurgitation, secondary Pulmonary hypertension and tricuspid regurg are likely linked. His anxiety is preventing him for from getting further investigation right now. He also is basically asymptomatic. We will try to work on this when he returns in the fall. Urge incontinence Surgical History CERVICAL SPINE FUSING 07/2013; C3-C4 WITH CADAVER BONE AND SECURING WITH TITANIUM PLATE Colonoscopy - IV Sedation (05/16/12) DR. MIRZA CESPEDES (TUBULAR ADENOMA) Extraction of cataract (06/12/14) [facility]-06/12/14 RIGHT EYE; S/P LEFT 05/22/14 History of cataract removal with insertion of prosthetic lens History of lumbar discectomy History of radical prostatectomy for prostate cancer Status post cervical spinal arthrodesis Status post lumbar laminectomy Family History Mother No problems noted. Father Leiomyosarcoma Sister Hyperlipidemia Grandfather No problems noted. Grandfather No problems noted. Grandmother No problems noted. Grandmother No problems noted. Maternal Aunt Personal history of malignant neoplasm COLON Son No problems noted. Son No problems noted. Social History Smoking/Tobacco Use Status: Never Smoking risk assessment performed?: Yes Alcohol Intake: former Drug use: Never Substance use type: does not use Housing: house Do you feel safe at home: Yes Do you feel safe in your relationship?: Yes Meds Allergies and Home Medications Allergies Allergy/AdvReac Type Severity Reaction Status Date / Time brimonidine tartrate Allergy Intermediate eye Verified 06/08/20 10:56 [From Combigan] irritation,rash buspirone Allergy Intermediate Verified 06/08/20 10:56 shellfish derived Allergy Intermediate Swelling/Ed Verified 06/08/20 10:56 earnest timolol maleate Allergy Intermediate eye Verified 06/08/20 10:56 [From Combigan] irritation,rash hydrocodone Allergy Verified 06/08/20 10:56 codeine AdvReac Intermediate Nausea Verified 06/08/20 10:56 ibuprofen [From Advil] AdvReac Intermediate Nausea Verified 06/08/20 10:56 naproxen sodium [From Aleve] AdvReac Intermediate Nausea Verified 06/08/20 10:56 indomethacin [From Indocin] AdvReac Mild Diarrhea Verified 06/08/20 10:56 Home Medications Medication Instructions Recorded Confirmed Type dorzolamide 1 drp OS BID drp NS 05/09/12 06/08/20 History latanoprost 1 drp OU QPM drp NS 05/09/12 06/08/20 History timolol maleate 0.5 % eye drops 1 drp OP BID 08/22/18 06/08/20 History acetaminophen 650 mg PO Q4H PRN PRN 06/08/20 06/08/20 History Exam Narrative Exam Narrative: Patient is unresponsive but appears to be comfortable. Breathing is unlabored. was present in the room at the time of my visit. I spoke with the and expressed my concern for her and for Llamas. She thanked me for the hospital keeping her while he passes. She did not feel that he was getting the proper care at the [place] [facility]. She gave me the name of the home that she wishes his body to be taken to when he passes. [facility] [address] in [facility]. . COVID-19 Screening Have you, or household traveled for leisure in last 14 days?: No
[2020-06-12] MEDS: Scopolamine 1 MG/3 DAYS PATCH TD (14:52)
--- NOTE | 2020-06-12 15:55 | CHAPLAIN ---
After a family meeting, Farhad decided to forgo further treatment and is on comfort care. He is expected to in the next few days according to Dr. Cartwright's latest note. I have spent time with Farhad this morning and afternoon. He is not responsive. I have not yet met his and son. During a conversation earlier in the week, Farhad explained that he is Religion, although there are few Religion churches in [place]. I will continue to visit.
--- NOTE | 2020-06-12 17:07 | CMSCP_ITS ---
- If Service Date Differs Date of service: 06/12/20 Time of Service: 17:12 Swingbed Plan of Care Plan of care: SWING BED PROGRAM ACTIVITIES/DISCHARGE PLAN OF CARE ACTIVITIES PLAN Date: 06/12/20 Identified Need: Life Enrichment during end of life care. Intervention/Plan: Daily family visitation with and son. (Unavailable at SNF due to quarantine guidelines). Family support, chief scientist services, comfort care.Comfort care order set. Initials: [facility]. DISCHARGE PLAN Date: 06/12/20 Identified Need: SWB1-Medication management, halfway end of life care. Intervention/Plan: Farhad is not expected to live more than a few weeks. SNF from which he was admitted requires 14 day quarantine period in which he would be unable to see his family. SWB1 with skilled RN care for end of life offered to family to support comfort care and end of life support for Farhad and his family. Initials: [facility].
--- NOTE | 2020-06-12 17:07 | CMSA_ITS ---
- If Service Date Differs Date of service: 06/12/20 Time of Service: 17:07 SB Psychosocial/Act.Assessment - Hospital Admission Admission Date: 06/12/20 Admission From:: [facility] Inpatient Diagnosis:: PE, comfort care - Swing Bed Admission Swing Bed Admit Date:: 06/12/20 Swing Bed Level of Care: Level 1/SNF - Social Supports PREVIOUS FUNCTIONAL STATUS/SOCIAL/FAMILY SUPPORTS:: Farhad is an 85 year old man who has been residing at [facility] since being hospitalized at [facility]. Prior to his hospitalization, he resided with his , Ivelisse, in [place], [place]. Farhad and Ivelisse have two sons, Jordan (tel. [phone]), who lives locally, and Tate, who lives in [place], [place]. 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 Farhad's hobbies consist of photography, swimming, and running. - Prior to Admission Living Arrangements/Environment Prior to Admission:: [facility] - Advance Directives for Healthcare Advance Directives for Healthcare: Durable Power of Combination Machine Tender for Healthcare (, Ivelisse Ceja) - Present Functional Status Physical Abilities:: Bedrest with repositioning - Medical History PAST MEDICAL HISTORY/PAST SURGICAL HISTORY:: Medical History: Anxiety - followed at [facility], Arthritis of right wrist - severe STT arthritis, Asthma, Chronic left maxillary sinusitis - 01/05/[address] Vieyra, Depression, Deviated nasal septum, Glaucoma, Lumbago - discectomy, Macrocytosis, Polyp of colon - MIRZA STROUD; TUBULAR ADENOMA, Pulmonary hypertension, Rectal/anal stenosis, TIA (transient ischemic attack) - Is not clear if this is a TIA or some other neurologic episodes such as a seizure. It could have also been brought about by cardiac dysrhythmia and will get a Holter regarding this. He needs a carotid ultrasound to rule out carotid disease. We will follow-up with him soon, Tricuspid valve regurgitation, secondary - Pulmonary hypertension and tricuspid regurg are likely linked. His anxiety is preventing him for from getting further investigation right now. He also is basically asymptomatic. We will try to work on this when he returns in the fall, and Urge incontinence. Surgical History: CERVICAL SPINE FUSING - 07/2013; C3-C4 WITH CADAVER BONE AND SECURING WITH TITANIUM PLATE, Colonoscopy - IV Sedation (05/16/12) - DR. MIRZA CESPEDES (TUBULAR ADENOMA), Extraction of cataract - [facility]-06/12/14 RIGHT EYE; S/P LEFT 05/22/14,. History of cataract removal with insertion of prosthetic lens, History of lumbar discectomy, History of radical prostatectomy - for prostate cancer,. Status post cervical spinal arthrodesis, and Status post lumbar laminectomy. - Admission Data Reason for Swing Bed Admission:: care home for Comfort Care Discharge Plan:: End of life care at [facility]. Marble Ceiling Installer: Colleen Eli Date Assessment was completed:: 06/12/20
[2020-06-12] MEDS: Latanoprost 0.005% 2.5 ML BTL OU (20:14)
[2020-06-13] MEDS: HYDROmorphone 2 MG/ML VIAL IVP ×7 (01:15→23:52)
[2020-06-13] MEDS: LORazepam 2 MG/ML VIAL IV/SC ×3 (01:15→08:44)
[2020-06-13] MEDS: Normal Saline Flush 10 ML SYR IVP ×7 (01:16→23:53)
[2020-06-13] MEDS: Acetaminophen 650 MG SUPP PR (13:12)
--- NOTE | 2020-06-13 14:08 | CHAPLAIN ---
Farhad is staying here for end of life care. His has been in to visit. I have not met her yet. I spent time with Farhad a few times today. He is no longer responsive, but seems comfortable.
[2020-06-13] MEDS: Latanoprost 0.005% 2.5 ML BTL OU (21:09)
[2020-06-14] MEDS: Normal Saline Flush 10 ML SYR IVP ×7 (00:18→22:53)
[2020-06-14] MEDS: LORazepam 2 MG/ML VIAL IV/SC (00:18)
[2020-06-14] MEDS: HYDROmorphone 2 MG/ML VIAL IVP ×4 (03:54→22:53)
--- NOTE | 2020-06-14 13:29 | CHAPLAIN ---
Farhad continues to be unresponsive, with very low respiration rate. I will continue to visit to provide company.
[2020-06-14] MEDS: Latanoprost 0.005% 2.5 ML BTL OU (19:37)
[2020-06-15] MEDS: HYDROmorphone 2 MG/ML VIAL IVP ×2 (06:05→07:13)
[2020-06-15] MEDS: Normal Saline Flush 10 ML SYR IVP (07:13)
[2020-06-15] MEDS: HYDROmorphone 100 MG in Normal Saline 240 ML IV (10:51)
[2020-06-15] MEDS: Scopolamine 1 MG/3 DAYS PATCH TD (15:00)
[2020-06-15] MEDS: Latanoprost 0.005% 2.5 ML BTL OU (19:46)
[2020-06-16] MEDS: Acetaminophen 650 MG SUPP PR (15:01)
[2020-06-16] MEDS: Latanoprost 0.005% 2.5 ML BTL OU (20:20)
[2020-06-17] MEDS: Normal Saline Flush 10 ML SYR IVP (01:36)
[2020-06-17] MEDS: Glycopyrrolate 0.2 MG/1 ML VIAL IVP (01:36)
[2020-06-17] MEDS: Latanoprost 0.005% 2.5 ML BTL OU (19:53)
[2020-06-18] MEDS: LORazepam 2 MG/ML VIAL IV/SC (03:17)
--- NOTE | 2020-06-18 15:07 | CHAPLAIN ---
I've checked in on Llamas a few times today. he remains unresponsive but appears to be comfortable and is receiving comfort care from the staff.
[2020-06-18] MEDS: Scopolamine 1 MG/3 DAYS PATCH TD (15:58)
[2020-06-18] MEDS: HYDROmorphone 100 MG in Normal Saline 240 ML IV (18:35)
[2020-06-18] MEDS: Latanoprost 0.005% 2.5 ML BTL OU (19:34)
[2020-06-19] MEDS: LORazepam 2 MG/ML VIAL IV/SC (08:45)
[2020-06-19] MEDS: Normal Saline Flush 10 ML SYR IVP (08:46)
--- NOTE | 2020-06-19 11:27 | PGE_ITS ---
Date of Service Date of service: 06/19/20 Time of Service: 11:27 Assessment and Plan Assessment and plan (1) Comfort measures only status: Status: Acute Assessment and plan: Continue current comfort care package including as needed use of analgesics, antiemetics, and anxiolytics. Continue current basal rate Dilaudid 3 mg an hour as this seems to be controlling any perceived discomfort. Subjective Subjective Interval history since last seen: Patient remains unresponsive. Breathing is nonlabored with his mouth wide open. Does not appear to be in any pain or discomfort at present time. prison in last 24 hours and increase his Dilaudid maintenance drip to 3 mg an hour because of perceived discomfort when they turn him. Exam Narrative Exam Narrative: Elderly white male who is completely unresponsive with nonlabored breathing, breathing with his mouth wide open. Does not appear to have excess secretions and his lung sounds are clear to auscultation. Heart irregularly irregular with a controlled rate.
--- NOTE | 2020-06-19 15:17 | CHAPLAIN ---
I visited Farhad a few times today. This afternoon, I met his Ivelisse. She has visited daily. She asked why it was taking Farhad so many days to , especially because he wanted to , she said. We talked about how bodies shut down differently. She said he may be thinking about memories of the war that are difficult for him. He appears to be comfortable and his breathing is not labored.
[2020-06-19] MEDS: Latanoprost 0.005% 2.5 ML BTL OU (19:45)
--- NOTE | 2020-06-20 07:48 | W.PM.DDS ---
Date of service: 06/20/20 Time of Service: 07:48 Discharge Sum: Prov Provider Consults: 06/12/20 15:24 Small Package And Bundle Sorter Clerk Consult [CONS] Routine Consultation Status:: Contact made by MD Clarification:: Manage/follow per spec. Reason for consult:: end of life care Discharge Sum: Diag PCOD Cause of : Acute right-sided congestive heart failure Contributing Factors (1) Pulmonary embolism: (2) Pulmonary hypertension: (3) Tricuspid valve regurgitation, secondary: (4) Lung nodules: Discharge Sum: Summary Date and Time Admission Date: 06/13/2103/21/21 13:23 Date of : 06/20/20 Time of : 05:45 Summary Details: Mr Ceja was an 85 year old male with PMHx of pulmonary hypertension, tricuspid regurgitation, TIA, and rectal stenosis who was admitted to [facility] hospitalist service on 06/08/2020 and subsequently transitioned to comfort measures and swing bed level 1 status on 06/12/2020 for acute right sided heart failure/right heart strain due to saddle pulmonary embolism in RML/RLL. There was also evidence of multiple lung nodules of unclear etiology, possibly neoplastic. The patient continued to received comfort care while on Swing bed 1 and did require titration of dilaudid infusion to achieve that goal. He peacefully on 06/20/2020 at 04:45 and was pronounced at 05:50. We appreciate the opportunity to take care of Mr Ceja in his final days and wish his family well. Additional Data Confirmation of as documented by pronouncing clinician: no pulse, no respirations, no heart sounds and pupils fixed and dilated Family: contacted Attending/PCP notified?: Yes Attending Physician: Jaden Juárez Was code activated?: No questioned documents examiner notified?: No Organ bank notified?: No Advance directives: Yes Hospice patient?: No
== END 2020-06-20 05:45 | disposition expired | DRG 175 ==
PROVIDERS: Admitting Provider Internal Medicine; PCP Nurse Practitioner; Visit Provider Internal Medicine
DX: I26.02 Saddle embolus of pulmonary artery with acute cor pulmonale (principal); Z51.5 Encounter for palliative care; I27.20 Pulmonary hypertension, unspecified; W19.XXXA Unspecified fall, initial encounter; Y92.129 Unspecified place in nursing home as the place of occurrence of the external cause; R29.6 Repeated falls; Z91.81 History of falling; F41.9 Anxiety disorder, unspecified; J45.909 Unspecified asthma, uncomplicated; K59.00 Constipation, unspecified; F32.9 Major depressive disorder, single episode, unspecified; H40.9 Unspecified glaucoma; D75.89 Other specified diseases of blood and blood-forming organs; I07.1 Rheumatic tricuspid insufficiency; N39.41 Urge incontinence; R91.8 Other nonspecific abnormal finding of lung field
CPT/HCPCS: 99221; 99305; 99307; 99231; 99238; J1170; J2060